=== PATIENT | female | born 1995 | race Caucasian/White ===

== ENCOUNTER 2019-05-01 17:27 | Inpatient (IN) | payer OTHER ==
[2019-05-01 19:43] VITALS: BMI 20.2
--- NOTE | 2019-05-01 21:34 | HP ---
COWS - Scale Resting Pulse: 0= [place] 80 or Below Sweatin= Chills/Flushing Restless Observation: 1= Difficult to Sit Still Pupil Size: 2= Moderately Dilated Bone or Joint Aches: 2= Severe Diffuse Aches Runny Nose/ Eye Tearin= Runny Nose/Eyes GI Upset > 30mins: 2= Nausea/Diarrhea Tremor Observation: 2= Slight Tremor Visible Yawning Observation: 0= None Anxiety or Irritability: 2=Irritable/Anxious Goose Flesh Skin: 0=Smooth Skin COWS Score: 14 CIWA Score Nausea/Vomitin Muscle Tremors: 3 Anxiety: 3 Agitation: 2 Paroxysmal Sweats: 1-Minimal Palms Moist Orientation: 0-Oriented Tacttile Disturbances: 0-None Auditory Disturbances: 0-None Visual Disturbances: 2-Mild Sensitivity Headache: 3-Moderate CIWA-Ar Total Score: 17 - Admission Criteria OASAS Guidelines: Admission for Medically Managed Detox: Requires at least one of the followin. CIWA greater than 12 2. Seizures within the past 24 hours 3. Delirium tremens within the past 24 hours 4. Hallucinations within the past 24 hours 5. Acute intervention needed for co occurring medical disorder 6. Acute intervention needed for co occurring psychiatric disorder 7. Severe withdrawal that cannot be handled at a lower level of care (continued vomiting, continued diarrhea, abnormal vital signs) requiring intravenous medication and/or fluids 8. Patient presents the following: CIWA greater than 12 Admission Criteria Met: Admission criteria met Admission ROS [facility] Chief Complaint: I want to stop Allergies/Adverse Reactions: Allergies Allergy/AdvReac Type Severity Reaction Status Date / Time No Known Allergies Allergy Verified 05/01/19 19:35 History of Present Illness: began using heroin age 17 recreationally became problematic immediately treatment inpt, detox mostly, 2-3 rehab 8 mos abstinent incarcerated 2 weeks relapsed after release xanax 14 yo recreationally stopped and recently started again no seizures - Ebola screening Have you traveled outside of the country in the last 21 days: No Have you had contact with anyone from an Ebola affected area: No - Review of Systems Constitutional: Loss of Appetite, Unintentional Wgt. Loss EENT: reports: No Symptoms Reported Respiratory: reports: No Symptoms reported Cardiac: reports: No Symptoms Reported GI: reports: Diarrhea, Poor Appetite, Abdominal cramping : reports: No Symptoms Reported Musculoskeletal: reports: Joint Pain Integumentary: reports: No Symptoms Reported Neuro: reports: No Symptoms reported Endocrine: reports: No Symptoms Reported Hematology: reports: No Symptoms Reported Psychiatric: reports: No Sypmtoms Reported, Mood/Affect Appropiate, Orientated x3 Other Systems: Reviewed and Negative Patient History - Patient Medical History Hx Anemia: No Hx Asthma: No Hx Chronic Obstructive Pulmonary Disease (COPD): No Hx Cancer: No Hx Cardiac Disorders: No Hx Congestive Heart Failure: No Hx Hypertension: No Hx Hypercholesterolemia: No Hx Pacemaker: No HX Cerebrovascular Accident: No Hx Seizures: No Hx Dementia: No Hx Diabetes: No Hx Gastrointestinal Disorders: No Hx Liver Disease: Yes Hx Genitourinary Disorders: No Hx Sexually Transmitted Disorders: No Hx Renal Disease (ESRD): No Hx Thyroid Disease: No Hx Human Immunodeficiency Virus (HIV): No Hx Hepatitis C: Yes Other Medical History: mrsa, urosepsis, anxiety - Patient Surgical History Past Surgical History: No - Reproductive History Patient is a Female of Child Bearing Age (11 -55 yrs old): Yes Last Menstrual Period: 04/16/19 LMP comment: Patient : No - Smoking Cessation Smoking history: Current every day smoker Have you smoked in the past 12 months: Yes Aproximately how many cigarettes per day: 10 Initiated information on smoking cessation: Yes 'Breaking Loose' booklet given: 05/01/19 - Substances abused Heroin Substance route: Injection Frequency: Daily Amount used: 20 bags Age of first use: 17 Date of last use: 05/01/19 Alprazolam (Xanax) Substance route: Oral Frequency: Daily Amount used: 5 to 10 mg Age of first use: 14 Date of last use: 05/01/19 Family Disease History - Family Disease History Family Disease History: Diabetes: Father Admission Physical Exam BHS - Vital Signs Vital Signs: Vital Signs - 24 hr 05/01/19 19:34 Temperature 96.2 F L Pulse Rate 75 Respiratory 16 Rate Blood Pressure 120/78 - Physical General Appearance: Yes: No Apparent Distress HEENTM: Yes: EOMI, SEBAS Respiratory: Yes: Within Normal Limits Neck: Yes: Within Normal Limits Cardiology: Yes: Within Normal Limits Abdominal: Yes: Within Normal Limits Genitourinary: Yes: Within Normal Limits Back: Yes: Within Normal Limits Musculoskeletal: Yes: Within Normal Limits Extremities: Yes: Normal Capillary Refill, Normal Inspection Neurological: Yes: Within Normal Limits, cancellation clerk II-XII NML intact, Normal Mood/ Affect Integumentary: Yes: Track Sol Lymphatic: Yes: Within Normal Limits - Diagnostic (1) Opiate dependence Current Visit: Yes Status: Acute (2) Benzodiazepine dependence Current Visit: Yes Status: Acute (3) Hepatitis C Current Visit: Yes Status: Acute Breathalyzer - Breathalyzer Breathalyzer: 0 Urine Drug Screen - Test Device Lot number: [id number] Expiration date: 12/25/20 - Control Is test valid?: Yes - Results Drug screen NEGATIVE: No Urine drug screen results: FEN-Fentanyl, MOP-Opiates, OXY-Oxycodone, BZO- Benzodiazepines Inpatient Rehab Admission - Rehab Decision to Admit Inpatient rehab admission?: No
[2019-05-01] MEDS ORDERED: IBUPROFEN 400 MG TABLET (FP) PO PRN (21:41)
[2019-05-01] MEDS ORDERED: BISMUTH SUBSALICYLATE 524 MG/30 ML UD PO PRN (21:41)
[2019-05-01] MEDS ORDERED: METHADONE HCL 10 MG TABLET (FOR DETOX USE ONLY) PO ONE (21:41)
[2019-05-01] MEDS ORDERED: hydrOXYzine PAMOATE 25 MG CAPSULE (FP) PO PRN (21:41)
[2019-05-01] MEDS ORDERED: cloNIDine HCL 0.1 MG TABLET PO PRN (21:41)
[2019-05-01] MEDS ORDERED: MAG HYDROX/AL HYDROX/SIMETH 30 ML UNIT-DOSE CUP PO PRN (21:41)
[2019-05-01] MEDS ORDERED: MENTHOL/PHENOL 1 EACH UD MM PRN (21:41)
[2019-05-01] MEDS ORDERED: MAGNESIUM CITRATE 300 ML BOTTLE PO PRN (21:41)
[2019-05-01] MEDS ORDERED: ACETAMINOPHEN 325 MG TABLET (FP) PO PRN ×2 (21:41)
[2019-05-01] MEDS ORDERED: MAGNESIUM HYDROX 2400MG/30ML ORAL SUSPENSION 30 ML CUP PO PRN (21:41)
[2019-05-01] MEDS: diazePAM 5 MG TABLET PO SCH (23:29)
[2019-05-01] MEDS: THIAMINE HCL 100 MG TABLET (FP) PO SCH (23:30)
[2019-05-02] MEDS: diazePAM 5 MG TABLET PO SCH ×3 (06:08→23:16)
[2019-05-02] MEDS: diazePAM 5 MG TABLET PO PRN (06:40)
[2019-05-02] MEDS ORDERED: METHADONE HCL 10 MG TABLET (FOR DETOX USE ONLY) ONE (09:57)
[2019-05-02] MEDS ORDERED: METHADONE HCL 5 MG TABLET (FOR DETOX USE ONLY) ONE (09:58)
[2019-05-02] MEDS ORDERED: METHADONE (DETOX) 20 MG, METHADONE (DETOX) 5 MG PO ONE (10:00)
[2019-05-02] MEDS: PRENATAL VITAMINS W/ FOLIC ACID TABLET (FP) PO SCH (10:51)
[2019-05-02 11:14] LABS: HEMATOCRIT 38.7 % (32.4-45.2); HEMOGLOBIN 12.8 GM/dL (10.7-15.3); MCH 28.3 pg (25.7-33.7); MCHC 33.1 g/dl (32.0-36.0); MEAN CELL VOLUME 85.2 fl (80-96); MEAN PLT VOLUME 10.9 fl (7.5-11.1); RBC 4.53 M/mm3 (3.60-5.2); RDW 14.6 % (11.6-15.6); WHITE BLOOD COUNT 5.6 K/mm3 (4.0-10.0)
[2019-05-02 11:17] LABS: ALBUMIN 3.2 g/dl (3.4-5.0); BILIRUBIN,TOTAL 0.5 mg/dL (0.2-1); BLOOD UREA NITROGEN 9.5 mg/dL (7-18); CALCIUM 8.8 mg/dL (8.5-10.1); CREATININE 0.7 mg/dL (0.55-1.3); TOT PROT 6.2 g/dl (6.4-8.2)
[2019-05-02] MEDS: METHOCARBAMOL 500 MG TABLET PO PRN ×2 (11:47→23:18)
[2019-05-02] MEDS ORDERED: PROCHLORPERAZINE MALEATE 5 MG TABLET PO PRN (12:02)
[2019-05-02 12:18] LABS: PLATELET COUNT 193 K/MM3 (134-434)
--- NOTE | 2019-05-02 15:28 | PN ---
S CIWA - CIWA Score Nausea/Vomitin Muscle Tremors: None Anxiety: 4-Mod. Anxious/Guarded Agitation: 3 Paroxysmal Sweats: No Perspiration Orientation: 0-Oriented Tacttile Disturbances: 2-Mild Itch/Numbness/Burn Auditory Disturbances: 0-None Visual Disturbances: 2-Mild Sensitivity Headache: 0-None Present CIWA-Ar Total Score: 14 [facility] COWS - Scale Resting Pulse: 0= [place] 80 or Below Sweatin= Chills/Flushing Restless Observation: 1= Difficult to Sit Still Pupil Size: 0= Normal to Room Light Bone or Joint Aches: 0= None Runny Nose/ Eye Tearin= None GI Upset > 30mins: 1= Stomach Cramp Tremor Observation of Outstretched Hands: 0= None Yawning Observation: 1= 1-2x During Session Anxiety or Irritability: 2=Irritable/Anxious Goose Flesh Skin: 3=Piloerection COWS Score: 9 BHS Progress Note (SOAP) Subjective: Restless, Anxious, Nausea, Stomach Cramping. Objective: PATIENT A & O X 3, OBSERVED AMBULATING ON UNIT UNASSISTED. IN NO ACUTE DISTRESS. 05/02/19 15:27 Vital Signs Temperature 97.1 F L 05/02/19 09:46 Pulse Rate 65 05/02/19 09:46 Respiratory Rate 18 05/02/19 09:46 Blood Pressure 112/61 05/02/19 09:46 O2 Sat by Pulse Oximetry (%) Laboratory Tests 05/02/19 05/02/19 05/02/19 08:00 08:00 08:00 WBC 5.6 RBC 4.53 Hgb 12.8 Hct 38.7 MCV 85.2 MCH 28.3 MCHC 33.1 RDW 14.6 Plt Count 193 MPV 10.9 Sodium 141 Potassium 4.0 Chloride 107 Carbon Dioxide 30 Anion Gap 5 L BUN 9.5 Creatinine 0.7 Est GFR (CKD-EPI)AfAm 141.54 Est GFR (CKD-EPI)NonAf 122.12 Random Glucose 87 Calcium 8.8 Total Bilirubin 0.5 AST 57 H ALT 101 H Alkaline Phosphatase 96 Total Protein 6.2 L Albumin 3.2 L RPR Titer Nonreactive LABS NOTED. Assessment: 05/02/19 15:28 WITHDRAWAL SYMPTOMS. Plan: CONTINUE DETOX. PRN COMPAZINE PO FOR NAUSEA.
[2019-05-02] MEDS: THIAMINE HCL 100 MG TABLET (FP) PO SCH (23:16)
[2019-05-03] MEDS: diazePAM 5 MG TABLET PO SCH ×2 (07:05→18:46)
[2019-05-03] MEDS: diazePAM 5 MG TABLET PO PRN (07:42)
[2019-05-03] MEDS ORDERED: METHADONE HCL 10 MG TABLET (FOR DETOX USE ONLY) PO ONE (10:00)
[2019-05-03] MEDS: PRENATAL VITAMINS W/ FOLIC ACID TABLET (FP) PO SCH (10:40)
[2019-05-03] MEDS: METHOCARBAMOL 500 MG TABLET PO PRN ×2 (10:41→18:47)
--- NOTE | 2019-05-03 11:57 | PN ---
S CIWA - CIWA Score Nausea/Vomitin-Mild Nausea/No Vomiting Muscle Tremors: 2 Anxiety: 2 Agitation: 2 Paroxysmal Sweats: 1-Minimal Palms Moist Orientation: 0-Oriented Tacttile Disturbances: 1-Very Mild Itch/Numbness Auditory Disturbances: 0-None Visual Disturbances: 0-None Headache: 1-Very Mild CIWA-Ar Total Score: 10 BHS COWS - Scale Resting Pulse: 0= [place] 80 or Below Sweatin= Chills/Flushing Restless Observation: 0= Sits Still Pupil Size: 0= Normal to Room Light Bone or Joint Aches: 1= Mild Discomfort Runny Nose/ Eye Tearin= None GI Upset > 30mins: 2= Nausea/Diarrhea Tremor Observation of Outstretched Hands: 1= Tremor [place], Not Seen Yawning Observation: 0= None Anxiety or Irritability: 1=Feels Anxious/Irritable Goose Flesh Skin: 0=Smooth Skin COWS Score: 6 BHS Progress Note (SOAP) Subjective: feeling calm today better than yesterday less anxious mild body aches discuss benefits of medication assisted program and the variation of methadone and subxone Objective: 05/03/19 11:56 Vital Signs Temperature 97.4 F L 05/03/19 09:36 Pulse Rate 56 L 05/03/19 09:36 Respiratory Rate 20 05/03/19 09:36 Blood Pressure 113/72 05/03/19 09:36 O2 Sat by Pulse Oximetry (%) Laboratory Last Values WBC 5.6 K/mm3 (4.0-10.0) 05/02/19 08:00 RBC 4.53 M/mm3 (3.60-5.2) 05/02/19 08:00 Hgb 12.8 GM/dL (10.7-15.3) 05/02/19 08:00 Hct 38.7 % (32.4-45.2) 05/02/19 08:00 MCV 85.2 fl (80-96) 05/02/19 08:00 MCH 28.3 pg (25.7-33.7) 05/02/19 08:00 MCHC 33.1 g/dl (32.0-36.0) 05/02/19 08:00 RDW 14.6 % (11.6-15.6) 05/02/19 08:00 Plt Count 193 K/MM3 (134-434) 05/02/19 08:00 MPV 10.9 fl (7.5-11.1) 05/02/19 08:00 Sodium 141 mmol/L (136-145) 05/02/19 08:00 Potassium 4.0 mmol/L (3.5-5.1) 05/02/19 08:00 Chloride 107 mmol/L (98-107) 05/02/19 08:00 Carbon Dioxide 30 mmol/L (21-32) 05/02/19 08:00 Anion Gap 5 MMOL/L (8-16) L 05/02/19 08:00 BUN 9.5 mg/dL (7-18) 05/02/19 08:00 Creatinine 0.7 mg/dL (0.55-1.3) 05/02/19 08:00 Est GFR (CKD-EPI)AfAm 141.54 05/02/19 08:00 Est GFR (CKD-EPI)NonAf 122.12 05/02/19 08:00 Random Glucose 87 mg/dL (74-106) 05/02/19 08:00 Calcium 8.8 mg/dL (8.5-10.1) 05/02/19 08:00 Total Bilirubin 0.5 mg/dL (0.2-1) 05/02/19 08:00 AST 57 U/L (15-37) H 05/02/19 08:00 ALT 101 U/L (13-61) H 05/02/19 08:00 Alkaline Phosphatase 96 U/L (45-117) 05/02/19 08:00 Total Protein 6.2 g/dl (6.4-8.2) L 05/02/19 08:00 Albumin 3.2 g/dl (3.4-5.0) L 05/02/19 08:00 POC Urine HCG, Qual Negative 05/01/19 21:06 RPR Titer Nonreactive (NONREACTIVE) 05/02/19 08:00 lab noted Assessment: 05/03/19 11:57 mild benzo and opiate withdrawal sx Plan: continue benzo and opioid detox
[2019-05-03] MEDS: MELATONIN 5 MG TABLETS PO PRN (22:20)
[2019-05-03] MEDS: THIAMINE HCL 100 MG TABLET (FP) PO SCH (22:20)
[2019-05-04] MEDS ORDERED: diazePAM 5 MG TABLET PO ONE (06:00)
[2019-05-04] MEDS ORDERED: METHADONE HCL 10 MG TABLET (FOR DETOX USE ONLY) ONE (08:25)
[2019-05-04] MEDS ORDERED: METHADONE HCL 5 MG TABLET (FOR DETOX USE ONLY) ONE (08:25)
[2019-05-04] MEDS: diazePAM 5 MG TABLET PO PRN ×4 (08:44→21:10)
[2019-05-04] MEDS ORDERED: METHADONE (DETOX) 10 MG, METHADONE (DETOX) 5 MG PO ONE (10:00)
[2019-05-04] MEDS: PRENATAL VITAMINS W/ FOLIC ACID TABLET (FP) PO SCH (10:11)
--- NOTE | 2019-05-04 12:44 | PN ---
S CIWA - CIWA Score Nausea/Vomitin-No Nausea/No Vomiting Muscle Tremors: 2 Anxiety: 2 Agitation: 1-Slight > Activity Paroxysmal Sweats: 1-Minimal Palms Moist Orientation: 0-Oriented Tacttile Disturbances: 0-None Auditory Disturbances: 0-None Visual Disturbances: 0-None Headache: 0-None Present CIWA-Ar Total Score: 6 S COWS - Scale Resting Pulse: 0= [place] 80 or Below Sweatin= No chills or Flushing Restless Observation: 0= Sits Still Pupil Size: 0= Normal to Room Light Bone or Joint Aches: 1= Mild Discomfort Runny Nose/ Eye Tearin= None GI Upset > 30mins: 0= None Tremor Observation of Outstretched Hands: 1= Tremor [place], Not Seen Yawning Observation: 0= None Anxiety or Irritability: 1=Feels Anxious/Irritable Goose Flesh Skin: 0=Smooth Skin COWS Score: 3 S Progress Note (SOAP) Subjective: feeling ok today less tremor mild anxiety encourage discussing medication assisted treatment program Objective: 05/04/19 12:45 Vital Signs Temperature 99.1 F 05/04/19 09:06 Pulse Rate 64 05/04/19 09:06 Respiratory Rate 16 05/04/19 09:06 Blood Pressure 108/66 05/04/19 09:06 O2 Sat by Pulse Oximetry (%) Laboratory Last Values WBC 5.6 K/mm3 (4.0-10.0) 05/02/19 08:00 RBC 4.53 M/mm3 (3.60-5.2) 05/02/19 08:00 Hgb 12.8 GM/dL (10.7-15.3) 05/02/19 08:00 Hct 38.7 % (32.4-45.2) 05/02/19 08:00 MCV 85.2 fl (80-96) 05/02/19 08:00 MCH 28.3 pg (25.7-33.7) 05/02/19 08:00 MCHC 33.1 g/dl (32.0-36.0) 05/02/19 08:00 RDW 14.6 % (11.6-15.6) 05/02/19 08:00 Plt Count 193 K/MM3 (134-434) 05/02/19 08:00 MPV 10.9 fl (7.5-11.1) 05/02/19 08:00 Sodium 141 mmol/L (136-145) 05/02/19 08:00 Potassium 4.0 mmol/L (3.5-5.1) 05/02/19 08:00 Chloride 107 mmol/L (98-107) 05/02/19 08:00 Carbon Dioxide 30 mmol/L (21-32) 05/02/19 08:00 Anion Gap 5 MMOL/L (8-16) L 05/02/19 08:00 BUN 9.5 mg/dL (7-18) 05/02/19 08:00 Creatinine 0.7 mg/dL (0.55-1.3) 05/02/19 08:00 Est GFR (CKD-EPI)AfAm 141.54 05/02/19 08:00 Est GFR (CKD-EPI)NonAf 122.12 05/02/19 08:00 Random Glucose 87 mg/dL (74-106) 05/02/19 08:00 Calcium 8.8 mg/dL (8.5-10.1) 05/02/19 08:00 Total Bilirubin 0.5 mg/dL (0.2-1) 05/02/19 08:00 AST 57 U/L (15-37) H 05/02/19 08:00 ALT 101 U/L (13-61) H 05/02/19 08:00 Alkaline Phosphatase 96 U/L (45-117) 05/02/19 08:00 Total Protein 6.2 g/dl (6.4-8.2) L 05/02/19 08:00 Albumin 3.2 g/dl (3.4-5.0) L 05/02/19 08:00 POC Urine HCG, Qual Negative 05/01/19 21:06 RPR Titer Nonreactive (NONREACTIVE) 05/02/19 08:00 lab noted Assessment: 05/04/19 12:46 benzo and opiate withdrawal sx Plan: continue benzo and opiate detox
[2019-05-04] MEDS: METHOCARBAMOL 500 MG TABLET PO PRN ×2 (12:53→22:25)
[2019-05-04] MEDS: MELATONIN 5 MG TABLETS PO PRN (22:23)
[2019-05-04] MEDS: THIAMINE HCL 100 MG TABLET (FP) PO SCH (22:23)
[2019-05-05] MEDS ORDERED: METHADONE HCL 10 MG TABLET (FOR DETOX USE ONLY) PO ONE (10:00)
[2019-05-05] MEDS: PRENATAL VITAMINS W/ FOLIC ACID TABLET (FP) PO SCH (10:46)
[2019-05-05] MEDS: METHOCARBAMOL 500 MG TABLET PO PRN ×2 (10:46→22:27)
--- NOTE | 2019-05-05 15:32 | PN ---
[facility] CIWA - CIWA Score Nausea/Vomitin-No Nausea/No Vomiting Muscle Tremors: 1-None Visible, but [place] Anxiety: 1-Mildly Anxious Agitation: 1-Slight > Activity Paroxysmal Sweats: No Perspiration Orientation: 0-Oriented Tacttile Disturbances: 0-None Auditory Disturbances: 0-None Visual Disturbances: 0-None Headache: 0-None Present CIWA-Ar Total Score: 3 S COWS - Scale Resting Pulse: 0= [place] 80 or Below Sweatin= No chills or Flushing Restless Observation: 0= Sits Still Pupil Size: 0= Normal to Room Light Bone or Joint Aches: 0= None Runny Nose/ Eye Tearin= None GI Upset > 30mins: 0= None Tremor Observation of Outstretched Hands: 1= Tremor [place], Not Seen Yawning Observation: 0= None Anxiety or Irritability: 0= None Goose Flesh Skin: 0=Smooth Skin COWS Score: 1 [facility] Progress Note (SOAP) Subjective: doing better today discuss medication assisted treatment program patient is strongly considering suboxone Objective: 05/05/19 15:35 Vital Signs Temperature 97.3 F L 05/05/19 13:05 Pulse Rate 62 05/05/19 13:05 Respiratory Rate 18 05/05/19 13:05 Blood Pressure 103/70 05/05/19 13:05 O2 Sat by Pulse Oximetry (%) Laboratory Last Values WBC 5.6 K/mm3 (4.0-10.0) 05/02/19 08:00 RBC 4.53 M/mm3 (3.60-5.2) 05/02/19 08:00 Hgb 12.8 GM/dL (10.7-15.3) 05/02/19 08:00 Hct 38.7 % (32.4-45.2) 05/02/19 08:00 MCV 85.2 fl (80-96) 05/02/19 08:00 MCH 28.3 pg (25.7-33.7) 05/02/19 08:00 MCHC 33.1 g/dl (32.0-36.0) 05/02/19 08:00 RDW 14.6 % (11.6-15.6) 05/02/19 08:00 Plt Count 193 K/MM3 (134-434) 05/02/19 08:00 MPV 10.9 fl (7.5-11.1) 05/02/19 08:00 Sodium 141 mmol/L (136-145) 05/02/19 08:00 Potassium 4.0 mmol/L (3.5-5.1) 05/02/19 08:00 Chloride 107 mmol/L (98-107) 05/02/19 08:00 Carbon Dioxide 30 mmol/L (21-32) 05/02/19 08:00 Anion Gap 5 MMOL/L (8-16) L 05/02/19 08:00 BUN 9.5 mg/dL (7-18) 05/02/19 08:00 Creatinine 0.7 mg/dL (0.55-1.3) 05/02/19 08:00 Est GFR (CKD-EPI)AfAm 141.54 05/02/19 08:00 Est GFR (CKD-EPI)NonAf 122.12 05/02/19 08:00 Random Glucose 87 mg/dL (74-106) 05/02/19 08:00 Calcium 8.8 mg/dL (8.5-10.1) 05/02/19 08:00 Total Bilirubin 0.5 mg/dL (0.2-1) 05/02/19 08:00 AST 57 U/L (15-37) H 05/02/19 08:00 ALT 101 U/L (13-61) H 05/02/19 08:00 Alkaline Phosphatase 96 U/L (45-117) 05/02/19 08:00 Total Protein 6.2 g/dl (6.4-8.2) L 05/02/19 08:00 Albumin 3.2 g/dl (3.4-5.0) L 05/02/19 08:00 POC Urine HCG, Qual Negative 05/01/19 21:06 RPR Titer Nonreactive (NONREACTIVE) 05/02/19 08:00 lab noted Assessment: 05/05/19 15:35 benzo and opiate withdrawal sx Plan: continue benzo and opiate detox
[2019-05-05] MEDS: MELATONIN 5 MG TABLETS PO PRN (22:26)
[2019-05-05] MEDS: THIAMINE HCL 100 MG TABLET (FP) PO SCH (22:26)
[2019-05-06] MEDS: METHOCARBAMOL 500 MG TABLET PO PRN (05:58)
[2019-05-06] MEDS ORDERED: METHADONE HCL 5 MG TABLET (FOR DETOX USE ONLY) PO ONE (06:00)
[2019-05-06 06:46] VITALS: BP 99/51; PULSE 53; TEMP 97.2
--- NOTE | 2019-05-06 14:45 | DS ---
[facility] Detox Discharge Summary Admission Date: 05/01/19 Discharge Date: 05/06/19 - History Present History: Opioid Dependence, Sedative Dependence Additional Comments: 23 years old female admitted on 05/01/19 for benzo and opiate withdrawal stabilization [facility] Physical Exam Results Vital Signs: Vital Signs Temperature 97.2 F L 05/06/19 06:46 Pulse Rate 53 L 05/06/19 06:46 Respiratory Rate 18 05/06/19 06:46 Blood Pressure 99/51 L 05/06/19 06:46 O2 Sat by Pulse Oximetry (%) Pertinent Admission Physical Exam Findings: benzo and opiate withdrawal sx Laboratory Last Values WBC 5.6 K/mm3 (4.0-10.0) 05/02/19 08:00 RBC 4.53 M/mm3 (3.60-5.2) 05/02/19 08:00 Hgb 12.8 GM/dL (10.7-15.3) 05/02/19 08:00 Hct 38.7 % (32.4-45.2) 05/02/19 08:00 MCV 85.2 fl (80-96) 05/02/19 08:00 MCH 28.3 pg (25.7-33.7) 05/02/19 08:00 MCHC 33.1 g/dl (32.0-36.0) 05/02/19 08:00 RDW 14.6 % (11.6-15.6) 05/02/19 08:00 Plt Count 193 K/MM3 (134-434) 05/02/19 08:00 MPV 10.9 fl (7.5-11.1) 05/02/19 08:00 Sodium 141 mmol/L (136-145) 05/02/19 08:00 Potassium 4.0 mmol/L (3.5-5.1) 05/02/19 08:00 Chloride 107 mmol/L (98-107) 05/02/19 08:00 Carbon Dioxide 30 mmol/L (21-32) 05/02/19 08:00 Anion Gap 5 MMOL/L (8-16) L 05/02/19 08:00 BUN 9.5 mg/dL (7-18) 05/02/19 08:00 Creatinine 0.7 mg/dL (0.55-1.3) 05/02/19 08:00 Est GFR (CKD-EPI)AfAm 141.54 05/02/19 08:00 Est GFR (CKD-EPI)NonAf 122.12 05/02/19 08:00 Random Glucose 87 mg/dL (74-106) 05/02/19 08:00 Calcium 8.8 mg/dL (8.5-10.1) 05/02/19 08:00 Total Bilirubin 0.5 mg/dL (0.2-1) 05/02/19 08:00 AST 57 U/L (15-37) H 05/02/19 08:00 ALT 101 U/L (13-61) H 05/02/19 08:00 Alkaline Phosphatase 96 U/L (45-117) 05/02/19 08:00 Total Protein 6.2 g/dl (6.4-8.2) L 05/02/19 08:00 Albumin 3.2 g/dl (3.4-5.0) L 05/02/19 08:00 POC Urine HCG, Qual Negative 05/01/19 21:06 RPR Titer Nonreactive (NONREACTIVE) 05/02/19 08:00 lab noted - Treatment Hospital Course: Detox Protocol Followed, Detoxed Safely, Responded well, Discharged Condition Good, Rehab Referral Accepted Patient has Accepted a Rehab Referral to: [facility] - Medication Discharge Medications: Ambulatory Orders NK [No Known Home Medication] 05/01/19 - Diagnosis (1) Alcohol dependence with uncomplicated withdrawal Status: Acute (2) Opioid dependence with withdrawal Status: Acute (3) Hepatitis C Status: Chronic Qualifiers: Viral hepatitis chronicity: unspecified Hepatic coma status: without hepatic coma Qualified Code(s): B19.20 - Unspecified viral hepatitis C without hepatic coma - AMA Did Patient Leave Against Medical Advice: No
== END 2019-05-06 09:01 | disposition home or self-care (01) | DRG 773 ==
LOC: YASAS 17:27 → Y3N 22:33
PROVIDERS: ADMIT Surgery; ATTEND Surgery
PROC: HZ2ZZZZ Detoxification Services for Substance Abuse Treatment (ICD-10-PCS; principal; 2019-05-01)
DX: F11.23 Opioid dependence with withdrawal (principal); F13.230 Sedative, hypnotic or anxiolytic dependence with withdrawal, uncomplicated; F17.210 Nicotine dependence, cigarettes, uncomplicated; B18.2 Chronic viral hepatitis C
CPT/HCPCS: 36415; 80053; 81025; 85027; 86593

== ENCOUNTER 2019-06-08 12:13 | Inpatient (IN) | payer OTHER ==
[2019-06-08 14:44] VITALS: BMI 20.7
--- NOTE | 2019-06-08 16:01 | PN ---
Teaching Attending Note Name of Resident: Yesica Chung ATTENDING PHYSICIAN STATEMENT I saw and evaluated the patient. I reviewed the resident's note and discussed the case with the resident. I agree with the resident's findings and plan as documented. SUBJECTIVE: 23 yo with no medical problems, on no meds, heroin use disorder and benzo use disorder here for detox. Was here last month- says she wants to stop using both substances- ready to go to rehab after detox OBJECTIVE: Vital Signs - 24 hr 06/08/19 14:36 Temperature 97.4 F L Pulse Rate 98 H Respiratory 16 Rate Blood Pressure 136/95 alert and oriented tremulous ASSESSMENT AND PLAN: heroin use disorder- start methadone detox benzo use disorder- start valium [place]
--- NOTE | 2019-06-08 16:01 | HP ---
COWS - Scale Resting Pulse: 1= [place] 81-100 Sweatin= Chills/Flushing Restless Observation: 1= Difficult to Sit Still Pupil Size: 0= Normal to Room Light Bone or Joint Aches: 1= Mild Discomfort Runny Nose/ Eye Tearin= Runny Nose/Eyes GI Upset > 30mins: 1= Stomach Cramp Tremor Observation: 4= Gross Tremor/Twitching Yawning Observation: 1= 1-2x During Session Anxiety or Irritability: 2=Irritable/Anxious Goose Flesh Skin: 0=Smooth Skin COWS Score: 14 CIWA Score Nausea/Vomitin Muscle Tremors: 4-Moderate,w/Arms Extend Anxiety: 3 Agitation: 2 Paroxysmal Sweats: 2 Orientation: 0-Oriented Tacttile Disturbances: 0-None Auditory Disturbances: 0-None Visual Disturbances: 0-None Headache: 2-Mild CIWA-Ar Total Score: 15 - Admission Criteria OASAS Guidelines: Admission for Medically Managed Detox: Requires at least one of the followin. CIWA greater than 12 2. Seizures within the past 24 hours 3. Delirium tremens within the past 24 hours 4. Hallucinations within the past 24 hours 5. Acute intervention needed for co occurring medical disorder 6. Acute intervention needed for co occurring psychiatric disorder 7. Severe withdrawal that cannot be handled at a lower level of care (continued vomiting, continued diarrhea, abnormal vital signs) requiring intravenous medication and/or fluids 8. Admission [facility] Chief Complaint: benzo and heroin detox and rehab Allergies/Adverse Reactions: Allergies Allergy/AdvReac Type Severity Reaction Status Date / Time No Known Allergies Allergy Verified 06/08/19 14:37 History of Present Illness: Patient is a 23 yo F with a PMHx of Hep C (untreated, 2017), presenting today for Xanax, heroine detox and rehab. Says she has been using heroin for 7 years and on/off with Xanax since 14 years old. Says she injects heroine throughout her body, mainly her Lower extremities. Patient has no hx of seizures. Patient was prescribed suboxone on 05/21 x 30 days. Last here for detox 05/01-05/06/19. Says she underwent detox many times in the past. - Ebola screening Have you traveled outside of the country in the last 21 days: No Have you had contact with anyone from an Ebola affected area: No Do you have a fever: No - Review of Systems Constitutional: Loss of Appetite, Changes in sleep EENT: reports: No Symptoms Reported Respiratory: reports: Cough, Shortness of Breath Cardiac: reports: Palpitations GI: reports: Poor Appetite : reports: No Symptoms Reported Musculoskeletal: reports: No Symptoms Reported Integumentary: reports: No Symptoms Reported Patient History - Patient Medical History Hx Anemia: No Hx Asthma: No Hx Chronic Obstructive Pulmonary Disease (COPD): No Hx Cancer: No Hx Cardiac Disorders: No Hx Congestive Heart Failure: No Hx Hypertension: No Hx Hypercholesterolemia: No Hx Pacemaker: No HX Cerebrovascular Accident: No Hx Seizures: No Hx Dementia: No Hx Diabetes: No Hx Gastrointestinal Disorders: No Hx Liver Disease: Yes Hx Genitourinary Disorders: No Hx Sexually Transmitted Disorders: No Hx Renal Disease (ESRD): No Hx Thyroid Disease: No Hx Human Immunodeficiency Virus (HIV): No Hx Hepatitis C: Yes Hx Depression: No Hx Suicide Attempt: No Hx Schizophrenia: No - Patient Surgical History Past Surgical History: No Hx Neurologic Surgery: No Hx Cataract Extraction: No Hx Cardiac Surgery: No Hx Lung Surgery: No Hx Breast Surgery: No Hx Breast Biopsy: No Hx Abdominal Surgery: No Hx Appendectomy: No Hx Cholecystectomy: No Hx Genitourinary Surgery: No Hx Section: No Hx Orthopedic Surgery: No Anesthesia Reaction: No - Reproductive History Last Menstrual Period: 04/16/19 - Smoking Cessation Smoking history: Current every day smoker Have you smoked in the past 12 months: Yes Aproximately how many cigarettes per day: 10 Hx Chewing Tobacco Use: No Initiated information on smoking cessation: Yes 'Breaking Loose' booklet given: 06/08/19 - Substances abused Heroin Substance route: Injection Frequency: Daily Amount used: 15 bags Age of first use: 17 Date of last use: 06/08/19 Alprazolam (Xanax) Substance route: Oral Frequency: Daily Amount used: 10 to 15 mg Age of first use: 14 Date of last use: 06/08/19 Family Disease History - Family Disease History Family Disease History: Diabetes: Father, Heart Disease: Mother Admission Physical Exam BHS - Vital Signs Vital Signs: Vital Signs - 24 hr 06/08/19 14:36 Temperature 97.4 F L Pulse Rate 98 H Respiratory 16 Rate Blood Pressure 136/95 - Physical General Appearance: Yes: Tremorous, Anxious HEENTM: Yes: Within Normal Limits, EOMI, SEBAS Respiratory: Yes: Lungs Clear, Normal Breath Sounds Neck: Yes: Supple Breast: Yes: Breast Exam Deferred Cardiology: Yes: S1, S2, Tachycardia Abdominal: Yes: Normal Bowel Sounds, Soft, Tenderness (LLQ tenderness) Genitourinary: Yes: Within Normal Limits - Diagnostic (1) Benzodiazepine dependence Current Visit: No Status: Acute (2) Opiate dependence Current Visit: No Status: Acute (3) Opioid dependence with withdrawal Current Visit: No Status: Acute (4) Hepatitis C Current Visit: No Status: Chronic Qualifiers: Viral hepatitis chronicity: unspecified Hepatic coma status: without hepatic coma Qualified Code(s): B19.20 - Unspecified viral hepatitis C without hepatic coma Cleared for Admission S - Detox or Rehab [facility] Level of Care: Medically Managed Breathalyzer - Breathalyzer Breathalyzer: 0 Urine Drug Screen - Test Device Lot number: [id number] Expiration date: 12/25/20 - Control Is test valid?: Yes - Results Drug screen NEGATIVE: No Urine drug screen results: FEN-Fentanyl, MOP-Opiates, OXY-Oxycodone, BZO- Benzodiazepines Inpatient Rehab Admission - Rehab Decision to Admit Inpatient rehab admission?: Yes - Initial Determination Are CD services needed?: Yes Free of communicable disease: Yes Not in need of hospitalization: Yes - Rehab Admission Criteria Previous failed treatment: Yes Poor recovery environment: Yes Comorbidities: Yes Lacks judgement: Yes Patient is meeting Inpatient Rehab admission criteria:: Yes
[2019-06-08] MEDS ORDERED: ACETAMINOPHEN 325 MG TABLET (FP) PO PRN ×2 (16:43)
[2019-06-08] MEDS ORDERED: BISMUTH SUBSALICYLATE 524 MG/30 ML UD PO PRN (16:43)
[2019-06-08] MEDS ORDERED: MENTHOL/PHENOL 1 EACH UD MM PRN (16:43)
[2019-06-08] MEDS ORDERED: MAGNESIUM CITRATE 300 ML BOTTLE PO PRN (16:43)
[2019-06-08] MEDS ORDERED: MAGNESIUM HYDROX 2400MG/30ML ORAL SUSPENSION 30 ML CUP PO PRN (16:43)
[2019-06-08] MEDS ORDERED: METHADONE HCL 10 MG TABLET (FOR DETOX USE ONLY) PO ONE (17:30)
[2019-06-08] MEDS ORDERED: diazePAM 5 MG TABLET PO ONE (17:45)
[2019-06-08] MEDS: MAG HYDROX/AL HYDROX/SIMETH 30 ML UNIT-DOSE CUP PO PRN (18:13)
[2019-06-08] MEDS: diazePAM 5 MG TABLET PO SCH (22:23)
[2019-06-08] MEDS: MELATONIN 5 MG TABLETS PO PRN (22:23)
[2019-06-08] MEDS: METHOCARBAMOL 500 MG TABLET PO PRN (22:23)
[2019-06-08] MEDS: THIAMINE HCL 100 MG TABLET (FP) PO SCH (22:23)
[2019-06-09] MEDS: diazePAM 5 MG TABLET PO SCH ×3 (05:53→22:26)
[2019-06-09] MEDS: METHOCARBAMOL 500 MG TABLET PO PRN ×2 (05:55→22:28)
[2019-06-09] MEDS: diazePAM 5 MG TABLET PO PRN ×4 (07:48→20:40)
[2019-06-09] MEDS ORDERED: METHADONE HCL 5 MG TABLET (FOR DETOX USE ONLY) ONE (09:40)
[2019-06-09] MEDS ORDERED: METHADONE HCL 10 MG TABLET (FOR DETOX USE ONLY) ONE (09:40)
[2019-06-09] MEDS ORDERED: METHADONE (DETOX) 20 MG, METHADONE (DETOX) 5 MG PO ONE (10:00)
[2019-06-09] MEDS: PRENATAL VITAMINS W/ FOLIC ACID TABLET (FP) PO SCH (10:32)
--- NOTE | 2019-06-09 12:10 | PN ---
[facility] CIWA - CIWA Score Nausea/Vomitin-No Nausea/No Vomiting Muscle Tremors: 3 Anxiety: 3 Agitation: 4-Moderately Restless Paroxysmal Sweats: 3 Orientation: 0-Oriented Tacttile Disturbances: 0-None Auditory Disturbances: 0-None Visual Disturbances: 0-None Headache: 0-None Present CIWA-Ar Total Score: 13 BHS COWS - Scale Resting Pulse: 1= [place] 81-100 Sweatin=Flushed/Facial Moisture Restless Observation: 1= Difficult to Sit Still Pupil Size: 0= Normal to Room Light Bone or Joint Aches: 2= Severe Diffuse Aches Runny Nose/ Eye Tearin= Nasal Congestion GI Upset > 30mins: 0= None Tremor Observation of Outstretched Hands: 1= Tremor [place], Not Seen Yawning Observation: 1= 1-2x During Session Anxiety or Irritability: 1=Feels Anxious/Irritable Goose Flesh Skin: 0=Smooth Skin COWS Score: 10 S Progress Note (SOAP) Subjective: agitation sweats irritable body aches interrupted sleep agitation Objective: 06/09/19 12:11 Vital Signs Temperature 97.9 F 06/09/19 09:39 Pulse Rate 98 H 06/09/19 09:39 Respiratory Rate 18 06/09/19 09:39 Blood Pressure 133/85 06/09/19 09:39 O2 Sat by Pulse Oximetry (%) Laboratory Tests 06/08/19 16:30 POC Urine HCG, Qual Negative rest of labs pending aaox3 ambulating no acute distress Assessment: 06/09/19 12:20 withdrawal sx Plan: continue detox increase fluids
[2019-06-09 12:54] LABS: ALBUMIN 3.6 g/dl (3.4-5.0); BILIRUBIN,TOTAL 0.5 mg/dL (0.2-1); CALCIUM 9.2 mg/dL (8.5-10.1); CREATININE 0.8 mg/dL (0.55-1.3); POTASSIUM 4.2 mmol/L (3.5-5.1); TOT PROT 6.9 g/dl (6.4-8.2)
[2019-06-09 13:47] LABS: HEMATOCRIT 38.6 % (32.4-45.2); HEMOGLOBIN 12.8 GM/dL (10.7-15.3); MCH 28.4 pg (25.7-33.7); MCHC 33.2 g/dl (32.0-36.0); MEAN CELL VOLUME 85.6 fl (80-96); MEAN PLT VOLUME 11.6 fl (7.5-11.1); PLATELET COUNT 193 K/MM3 (134-434); RBC 4.51 M/mm3 (3.60-5.2); RDW 13.8 % (11.6-15.6)
[2019-06-09] MEDS: hydrOXYzine PAMOATE 25 MG CAPSULE (FP) PO PRN (17:38)
[2019-06-09] MEDS: cloNIDine HCL 0.1 MG TABLET PO PRN (20:40)
[2019-06-09] MEDS: THIAMINE HCL 100 MG TABLET (FP) PO SCH (22:26)
[2019-06-10] MEDS: diazePAM 5 MG TABLET PO SCH ×2 (05:35→17:53)
[2019-06-10] MEDS: METHOCARBAMOL 500 MG TABLET PO PRN ×2 (05:36→22:54)
[2019-06-10] MEDS: diazePAM 5 MG TABLET PO PRN ×3 (07:30→19:35)
[2019-06-10] MEDS: MAG HYDROX/AL HYDROX/SIMETH 30 ML UNIT-DOSE CUP PO PRN (07:30)
[2019-06-10] MEDS ORDERED: METHADONE HCL 10 MG TABLET (FOR DETOX USE ONLY) PO ONE (10:00)
[2019-06-10] MEDS: PRENATAL VITAMINS W/ FOLIC ACID TABLET (FP) PO SCH (10:03)
[2019-06-10] MEDS: hydrOXYzine PAMOATE 25 MG CAPSULE (FP) PO PRN ×2 (10:29→22:25)
[2019-06-10] MEDS: cloNIDine HCL 0.1 MG TABLET PO PRN ×2 (10:29→22:25)
--- NOTE | 2019-06-10 10:35 | PN ---
[facility] CIWA - CIWA Score Nausea/Vomitin-No Nausea/No Vomiting Muscle Tremors: 2 Anxiety: 3 Agitation: 0-Normal Activity Paroxysmal Sweats: 3 Orientation: 0-Oriented Tacttile Disturbances: 0-None Auditory Disturbances: 0-None Visual Disturbances: 0-None Headache: 2-Mild CIWA-Ar Total Score: 10 BHS COWS - Scale Resting Pulse: 1= [place] 81-100 Sweatin= Chills/Flushing Restless Observation: 1= Difficult to Sit Still Pupil Size: 0= Normal to Room Light Bone or Joint Aches: 2= Severe Diffuse Aches Runny Nose/ Eye Tearin= Runny Nose/Eyes GI Upset > 30mins: 1= Stomach Cramp Tremor Observation of Outstretched Hands: 2= Slight Tremor Visible Yawning Observation: 1= 1-2x During Session Anxiety or Irritability: 2=Irritable/Anxious Goose Flesh Skin: 0=Smooth Skin COWS Score: 13 BHS Progress Note (SOAP) Subjective: c/o sweats, anxiety, irritability, stomach cramps, muscle aches, and headache. Objective: 06/10/19 10:35 Vital Signs 06/10/19 06/10/19 06/10/19 03:30 07:20 09:41 Temperature 96.6 F L 98.1 F Pulse Rate 86 84 Respiratory 18 16 18 Rate Blood Pressure 134/80 129/89 Lab Results WBC 6.0 K/mm3 (4.0-10.0) 06/09/19 07:30 RBC 4.51 M/mm3 (3.60-5.2) 06/09/19 07:30 Hgb 12.8 GM/dL (10.7-15.3) 06/09/19 07:30 Hct 38.6 % (32.4-45.2) 06/09/19 07:30 MCV 85.6 fl (80-96) 06/09/19 07:30 MCHC 33.2 g/dl (32.0-36.0) 06/09/19 07:30 RDW 13.8 % (11.6-15.6) 06/09/19 07:30 Plt Count 193 K/MM3 (134-434) 06/09/19 07:30 Sodium 141 mmol/L (136-145) 06/09/19 07:30 Potassium 4.2 mmol/L (3.5-5.1) 06/09/19 07:30 Chloride 107 mmol/L (98-107) 06/09/19 07:30 Carbon Dioxide 29 mmol/L (21-32) 06/09/19 07:30 Anion Gap 5 MMOL/L (8-16) L 06/09/19 07:30 BUN 8.0 mg/dL (7-18) 06/09/19 07:30 Creatinine 0.8 mg/dL (0.55-1.3) 06/09/19 07:30 Random Glucose 102 mg/dL (74-106) 06/09/19 07:30 Calcium 9.2 mg/dL (8.5-10.1) 06/09/19 07:30 Labs noted. Assessment: 06/10/19 10:35 AOX3, in no respiratory distress. Full ROM, ambulating in the unit. Withdrawal symptoms. Plan: continue detox.
[2019-06-10] MEDS: THIAMINE HCL 100 MG TABLET (FP) PO SCH (22:26)
[2019-06-11] MEDS: diazePAM 5 MG TABLET PO PRN ×4 (00:40→16:35)
[2019-06-11] MEDS ORDERED: diazePAM 5 MG TABLET PO ONE (06:00)
[2019-06-11] MEDS: IBUPROFEN 400 MG TABLET (FP) PO PRN ×2 (07:32→16:35)
[2019-06-11] MEDS: hydrOXYzine PAMOATE 25 MG CAPSULE (FP) PO PRN ×2 (07:33→22:21)
[2019-06-11] MEDS: METHOCARBAMOL 500 MG TABLET PO PRN ×2 (07:33→22:21)
[2019-06-11] MEDS ORDERED: METHADONE HCL 10 MG TABLET (FOR DETOX USE ONLY) ONE (08:59)
[2019-06-11] MEDS ORDERED: METHADONE HCL 5 MG TABLET (FOR DETOX USE ONLY) ONE (08:59)
[2019-06-11] MEDS ORDERED: METHADONE (DETOX) 10 MG, METHADONE (DETOX) 5 MG PO ONE (10:00)
[2019-06-11] MEDS: PRENATAL VITAMINS W/ FOLIC ACID TABLET (FP) PO SCH (10:19)
--- NOTE | 2019-06-11 11:13 | PN ---
[facility] CIWA - CIWA Score Nausea/Vomitin-No Nausea/No Vomiting Muscle Tremors: 2 Anxiety: 3 Agitation: 2 Paroxysmal Sweats: 3 Orientation: 0-Oriented Tacttile Disturbances: 0-None Auditory Disturbances: 0-None Visual Disturbances: 0-None Headache: 0-None Present CIWA-Ar Total Score: 10 BHS COWS - Scale Resting Pulse: 1= [place] 81-100 Sweatin= Chills/Flushing Restless Observation: 1= Difficult to Sit Still Pupil Size: 0= Normal to Room Light Bone or Joint Aches: 1= Mild Discomfort Runny Nose/ Eye Tearin= Runny Nose/Eyes GI Upset > 30mins: 1= Stomach Cramp Tremor Observation of Outstretched Hands: 2= Slight Tremor Visible Yawning Observation: 1= 1-2x During Session Anxiety or Irritability: 2=Irritable/Anxious Goose Flesh Skin: 0=Smooth Skin COWS Score: 12 S Progress Note (SOAP) Subjective: c/o sweats, muscle aches, anxiety, irritability, and stomach cramps. Objective: 06/11/19 11:14 Vital Signs 06/11/19 06/11/19 06/11/19 03:30 08:26 09:47 Temperature 96.1 F L 97.2 F L Pulse Rate 81 108 H Respiratory 18 18 19 Rate Blood Pressure 102/55 L 133/92 Lab Results WBC 6.0 K/mm3 (4.0-10.0) 06/09/19 07:30 RBC 4.51 M/mm3 (3.60-5.2) 06/09/19 07:30 Hgb 12.8 GM/dL (10.7-15.3) 06/09/19 07:30 Hct 38.6 % (32.4-45.2) 06/09/19 07:30 MCV 85.6 fl (80-96) 06/09/19 07:30 MCHC 33.2 g/dl (32.0-36.0) 06/09/19 07:30 RDW 13.8 % (11.6-15.6) 06/09/19 07:30 Plt Count 193 K/MM3 (134-434) 06/09/19 07:30 Sodium 141 mmol/L (136-145) 06/09/19 07:30 Potassium 4.2 mmol/L (3.5-5.1) 06/09/19 07:30 Chloride 107 mmol/L (98-107) 06/09/19 07:30 Carbon Dioxide 29 mmol/L (21-32) 06/09/19 07:30 Anion Gap 5 MMOL/L (8-16) L 06/09/19 07:30 BUN 8.0 mg/dL (7-18) 06/09/19 07:30 Creatinine 0.8 mg/dL (0.55-1.3) 06/09/19 07:30 Random Glucose 102 mg/dL (74-106) 06/09/19 07:30 Calcium 9.2 mg/dL (8.5-10.1) 06/09/19 07:30 Labs noted. Assessment: 06/11/19 11:15 AOX3, in no respiratory distress. Full ROM, ambulating in the unit. withdrawal symptoms. Plan: continue detox.
--- NOTE | 2019-06-11 11:30 | PN ---
BHS Progress Note Note: Pt states she was in [facility] for left ankle sprain due to fall and an chago wrap was applied to left LE. Chago wrap ordered to be applied once to left ankle.
[2019-06-11] MEDS: THIAMINE HCL 100 MG TABLET (FP) PO SCH (22:19)
[2019-06-11] MEDS: MELATONIN 5 MG TABLETS PO PRN (22:19)
[2019-06-12] MEDS: hydrOXYzine PAMOATE 25 MG CAPSULE (FP) PO PRN (07:48)
[2019-06-12] MEDS: METHOCARBAMOL 500 MG TABLET PO PRN (07:48)
[2019-06-12] MEDS: IBUPROFEN 400 MG TABLET (FP) PO PRN (07:48)
[2019-06-12 09:54] VITALS: BP 130/81; PULSE 100; TEMP 98.1
[2019-06-12] MEDS ORDERED: METHADONE HCL 10 MG TABLET (FOR DETOX USE ONLY) PO ONE (10:00)
[2019-06-12] MEDS: PRENATAL VITAMINS W/ FOLIC ACID TABLET (FP) PO SCH (10:15)
--- NOTE | 2019-06-12 12:02 | DS ---
[facility] Detox Discharge Summary Admission Date: 06/08/19 Discharge Date: 06/12/19 (Left AMA) - History Present History: Opioid Dependence, Sedative Dependence Additional Comments: Pt left AMA, pt did not complete her detox protocol. Pt states, "I have things to take care of ". An attempt to let her stay and complete her detox protocol failed. Pt is encouraged to follow-up with CD outpatient program and also to follow-up with her pmd but pt was adamant. Pt is alert and oriented x3 and in no respiratory distress. Pertinent Past History: Heroin and benzo use disorder. - Physical Exam Results Vital Signs: Vital Signs Temperature 98.1 F 06/12/19 09:51 Pulse Rate 100 H 06/12/19 09:51 Respiratory Rate 18 06/12/19 09:51 Blood Pressure 130/81 06/12/19 09:51 O2 Sat by Pulse Oximetry (%) Vital Signs 06/12/19 06/12/19 06:00 09:51 Temperature 97.5 F L 98.1 F Pulse Rate 59 L 100 H Respiratory 16 18 Rate Blood Pressure 103/55 L 130/81 Lab Results WBC 6.0 K/mm3 (4.0-10.0) 06/09/19 07:30 RBC 4.51 M/mm3 (3.60-5.2) 06/09/19 07:30 Hgb 12.8 GM/dL (10.7-15.3) 06/09/19 07:30 Hct 38.6 % (32.4-45.2) 06/09/19 07:30 MCV 85.6 fl (80-96) 06/09/19 07:30 MCHC 33.2 g/dl (32.0-36.0) 06/09/19 07:30 RDW 13.8 % (11.6-15.6) 06/09/19 07:30 Plt Count 193 K/MM3 (134-434) 06/09/19 07:30 Sodium 141 mmol/L (136-145) 06/09/19 07:30 Potassium 4.2 mmol/L (3.5-5.1) 06/09/19 07:30 Chloride 107 mmol/L (98-107) 06/09/19 07:30 Carbon Dioxide 29 mmol/L (21-32) 06/09/19 07:30 Anion Gap 5 MMOL/L (8-16) L 06/09/19 07:30 BUN 8.0 mg/dL (7-18) 06/09/19 07:30 Creatinine 0.8 mg/dL (0.55-1.3) 06/09/19 07:30 Random Glucose 102 mg/dL (74-106) 06/09/19 07:30 Calcium 9.2 mg/dL (8.5-10.1) 06/09/19 07:30 Labs noted. Pertinent Admission Physical Exam Findings: withdrawal symptoms. - Treatment Hospital Course: Detox Protocol Followed - Medication Discharge Medications: Ambulatory Orders NK [No Known Home Medication] 05/01/19 - Diagnosis (1) Alcohol dependence with uncomplicated withdrawal Status: Acute (2) Benzodiazepine dependence Status: Acute (3) Opiate dependence Status: Acute (4) Opioid dependence with withdrawal Status: Acute (5) Hepatitis C Status: Chronic Qualifiers: Viral hepatitis chronicity: unspecified Hepatic coma status: without hepatic coma Qualified Code(s): B19.20 - Unspecified viral hepatitis C without hepatic coma - AMA Did Patient Leave Against Medical Advice: Yes S COWS - Scale Resting Pulse: 0= [place] 80 or Below Sweatin= Beads of Sweat on Face Restless Observation: 1= Difficult to Sit Still Pupil Size: 0= Normal to Room Light Bone or Joint Aches: 1= Mild Discomfort Runny Nose/ Eye Tearin= None GI Upset > 30mins: 1= Stomach Cramp Tremor Observation of Outstretched Hands: 1= Tremor [place], Not Seen Yawning Observation: 1= 1-2x During Session Anxiety or Irritability: 2=Irritable/Anxious Goose Flesh Skin: 0=Smooth Skin COWS Score: 10 S CIWA - CIWA Score Nausea/Vomitin-No Nausea/No Vomiting Muscle Tremors: 1-None Visible, but [place] Anxiety: 3 Agitation: 2 Paroxysmal Sweats: 3 Orientation: 0-Oriented Tacttile Disturbances: 0-None Auditory Disturbances: 0-None Visual Disturbances: 0-None Headache: 1-Very Mild CIWA-Ar Total Score: 10
[2019-06-13] MEDS ORDERED: METHADONE HCL 5 MG TABLET (FOR DETOX USE ONLY) PO ONE (06:00)
== END 2019-06-12 11:11 | disposition left against medical advice (07) | DRG 770 ==
LOC: YASAS 12:13 → Y6N 17:11
PROVIDERS: ADMIT Surgery; ATTEND Surgery
PROC: HZ2ZZZZ Detoxification Services for Substance Abuse Treatment (ICD-10-PCS; principal; 2019-06-08)
DX: F11.23 Opioid dependence with withdrawal (principal); F10.230 Alcohol dependence with withdrawal, uncomplicated; F13.230 Sedative, hypnotic or anxiolytic dependence with withdrawal, uncomplicated; B19.20 Unspecified viral hepatitis C without hepatic coma; R00.0 Tachycardia, unspecified
CPT/HCPCS: 36415; 80053; 81025; 85027; 86480; 86593; J0735

== ENCOUNTER 2019-08-04 19:57 | Inpatient (IN) | payer OTHER ==
--- NOTE | 2019-08-04 22:10 | HP ---
CIWA Score Nausea/Vomitin-No Nausea/No Vomiting Muscle Tremors: 4-Moderate,w/Arms Extend Anxiety: 4-Mod. Anxious/Guarded Agitation: 4-Moderately Restless Paroxysmal Sweats: No Perspiration Orientation: 1-Uncertain about Date Tacttile Disturbances: 3-Moderate Itch/Numb/Burn (itching and picking of skin) Auditory Disturbances: 0-None Visual Disturbances: 3-Moderate Sensitivity Headache: 3-Moderate CIWA-Ar Total Score: 22 - Admission Criteria OASAS Guidelines: Admission for Medically Managed Detox: Requires at least one of the followin. CIWA greater than 12 2. Seizures within the past 24 hours 3. Delirium tremens within the past 24 hours 4. Hallucinations within the past 24 hours 5. Acute intervention needed for co occurring medical disorder 6. Acute intervention needed for co occurring psychiatric disorder 7. Severe withdrawal that cannot be handled at a lower level of care (continued vomiting, continued diarrhea, abnormal vital signs) requiring intravenous medication and/or fluids 8. Patient presents the following: CIWA greater than 12 Admission Criteria Met: Admission criteria met Admitting History and Physical - Past Medical History ...LMP: 04/16/19 - Smoking History Smoking history: Current every day smoker Have you smoked in the past 12 months: Yes Aproximately how many cigarettes per day: [address] [facility] Chief Complaint: C/O WITHDRAWAL SX'S Allergies/Adverse Reactions: Allergies Allergy/AdvReac Type Severity Reaction Status Date / Time No Known Allergies Allergy Verified 08/04/19 20:50 History of Present Illness: HERE FOR XANAX DETOX. CLIENT IS SELF REFERRED KNOWN TO THIS PROGRAM. LAST HERE . SHE IS ALSO OPIOID DEPENDENT ON MMTP WITH REPORTED DOSE OF 70 MG. LAST DOSED TODAY AT HER PROGRAM [facility] [place]. CLIENT IS TILL USING HEROIN APPOX 3 BAGS DAILY/ IV. SHE ALSO REPORTS DAILY XANAX USE. LAST USE EARLIER TODAY. LONGEST CLEAN TIME 8 MONTHS WHILE INCARCERATED. DENIES ANY SIGNIFICANT CLEAN TIME IN THE PAST YEAR. + HX/O DRUG OVERDOSE, BLACKOUTS. DENIES SEIZURES, SI/HI, AVH. HOMELESS, UNEMPLOYED, DENIES LEGALS Exam Limitations: No Limitations - Ebola screening Have you traveled outside of the country in the last 21 days: No (N) Have you had contact with anyone from an Ebola affected area: No Do you have a fever: No - Review of Systems Constitutional: Chills, Loss of Appetite, Malaise, Night Sweats, Changes in sleep, Unintentional Wgt. Loss EENT: reports: Blurred Vision, Nose Congestion (RUUNY NOSE) Respiratory: reports: No Symptoms reported Cardiac: reports: No Symptoms Reported GI: reports: Nausea, Poor Appetite, Poor Fluid Intake, Abdominal cramping : reports: No Symptoms Reported Musculoskeletal: reports: Joint Pain Integumentary: reports: Lesions (SCABS AND OPEN Abrasion from picking skin to face and arms) Neuro: reports: Headache, Numbness, Tremors Endocrine: reports: No Symptoms Reported Hematology: reports: No Symptoms Reported Psychiatric: reports: Orientated x3, Anxious Other Systems: Reviewed and Negative Patient History - Patient Medical History Hx Anemia: No Hx Asthma: No Hx Chronic Obstructive Pulmonary Disease (COPD): No Hx Cancer: No Hx Cardiac Disorders: No Hx Congestive Heart Failure: No Hx Hypertension: No Hx Hypercholesterolemia: No Hx Pacemaker: No HX Cerebrovascular Accident: No Hx Seizures: No Hx Dementia: No Hx Diabetes: No Hx Gastrointestinal Disorders: No Hx Liver Disease: Yes (hep c no txment) Hx Genitourinary Disorders: No Hx Sexually Transmitted Disorders: No Hx Renal Disease (ESRD): No Hx Thyroid Disease: No Hx Human Immunodeficiency Virus (HIV): No Hx Hepatitis C: Yes (no txment) Hx Depression: No Hx Suicide Attempt: No Hx Bipolar Disorder: No Hx Schizophrenia: No - Patient Surgical History Past Surgical History: No Hx Neurologic Surgery: No Hx Cataract Extraction: No Hx Cardiac Surgery: No Hx Lung Surgery: No Hx Breast Surgery: No Hx Breast Biopsy: No Hx Abdominal Surgery: No Hx Appendectomy: No Hx Cholecystectomy: No Hx Genitourinary Surgery: No Hx Section: No Hx Orthopedic Surgery: No Anesthesia Reaction: No - PPD History Previous Implant?: Yes Documented Results: Negative w/o proof Implanted On Prior R Admission?: No PPD to be Administered?: Yes - Reproductive History Patient is a Female of Child Bearing Age (11 -55 yrs old): Yes Last Menstrual Period: 07/28/19 LMP comment: reg Patient : No (neg uhcg) - Smoking Cessation Smoking history: Current every day smoker Have you smoked in the past 12 months: Yes Aproximately how many cigarettes per day: 10 Cigars Per Day: 0 Hx Chewing Tobacco Use: No Initiated information on smoking cessation: Yes 'Breaking Loose' booklet given: 08/04/19 - Substance & Tx. History Hx Alcohol Use: No Hx Substance Use: Yes Substance Use Type: Heroin, Prescribed (methadone), Tranquilizers (xanax) Hx Substance Use Treatment: Yes ([facility]) - Substances abused Heroin Substance route: Injection Frequency: 3-6 times per week Amount used: 3 bags Age of first use: 17 Date of last use: 08/08/19 Alprazolam (Xanax) Substance route: Oral Frequency: Daily Amount used: 10 to 20 mg Age of first use: 14 Date of last use: 08/04/19 Admission Physical Exam BHS - Vital Signs Vital Signs: Vital Signs - 24 hr 08/04/19 20:47 Temperature 97.1 F L Pulse Rate 84 Respiratory 16 Rate Blood Pressure 128/92 - Physical General Appearance: Yes: Moderate Distress, Tremorous, Irritable HEENTM: Yes: EOMI, Normocephalic, Normal Voice, SEBAS, Pharynx Normal, Rhinorrhea , Other (poor dental hygiene) Respiratory: Yes: Chest Non-Tender, Lungs Clear, Normal Breath Sounds Neck: Yes: No masses,lesions,Nodules, Supple, Trachea in good position Breast: Yes: Breast Exam Deferred Cardiology: Yes: Regular Rhythm, Regular Rate, S1, S2 Abdominal: Yes: Normal Bowel Sounds, Non Tender, Soft Genitourinary: Yes: Within Normal Limits Back: Yes: Normal Inspection Musculoskeletal: Yes: Gait Steady Extremities: Yes: Normal Range of Motion, Non-Tender, Tremors Neurological: Yes: Fully Oriented, Alert, Motor Strength 5/5, Depressed Affect Integumentary: Yes: Dry, Cold, Track Sol (r upper thigh and ble), Other ( abrasion like leasion to face arms and upper back from client picking skin no s/ sx of infection) Lymphatic: Yes: Within Normal Limits - Diagnostic (1) Sedative, hypnotic or anxiolytic dependence with withdrawal, uncomplicated Current Visit: Yes Status: Acute (2) Methadone maintenance therapy patient Current Visit: Yes Status: Chronic (3) Opioid abuse, continuous use Current Visit: Yes Status: Acute (4) Nicotine dependence Current Visit: Yes Status: Chronic Qualifiers: Nicotine product type: cigarettes Substance use status: uncomplicated Qualified Code(s): F17.210 - Nicotine dependence, cigarettes, uncomplicated (5) Excoriation (skin-picking) disorder Current Visit: Yes Status: Chronic (6) Hepatitis C Current Visit: Yes Status: Chronic Qualifiers: Viral hepatitis chronicity: unspecified Hepatic coma status: without hepatic coma Qualified Code(s): B19.20 - Unspecified viral hepatitis C without hepatic coma (7) Depressed affect Current Visit: Yes Status: Suspected Comment: declines psych consult Cleared for Admission [facility] - Detox or Rehab [facility] Level of Care: Medically Managed Detox Regimen/Protocol: Valium Claeared for Rehab Admission: No Breathalyzer - Breathalyzer Breathalyzer: 0 Urine Drug Screen - Test Device Lot number: [id number] Expiration date: 03/27/21 - Control Is test valid?: Yes - Results Drug screen NEGATIVE: No Urine drug screen results: NAN-Cocaine, MOP-Opiates, MTD-Methadone, BZO- Benzodiazepines Inpatient Rehab Admission - Rehab Decision to Admit Inpatient rehab admission?: No
[2019-08-04] MEDS ORDERED: NICOTINE POLACRILEX 2 MG GUM BUC PRN (22:16)
[2019-08-04] MEDS ORDERED: P-EPHED 60MG/TRIPROLIDI 2.5MG TABLET PO PRN (22:16)
[2019-08-04] MEDS ORDERED: ACETAMINOPHEN 325 MG TABLET (FP) PO PRN (22:16)
[2019-08-04] MEDS ORDERED: ONDANSETRON *ODT* 4 MG TABLET SL PRN (22:16)
[2019-08-04] MEDS ORDERED: DICYCLOMINE HCL 10 MG CAPSULE PO PRN (22:16)
[2019-08-04] MEDS ORDERED: MAGNESIUM HYDROX 2400MG/30ML ORAL SUSPENSION 30 ML CUP PO PRN (22:16)
[2019-08-04] MEDS ORDERED: MENTHOL/PHENOL 1 EACH UD MM PRN (22:16)
[2019-08-04] MEDS ORDERED: MAG HYDROX/AL HYDROX/SIMETH 30 ML UNIT-DOSE CUP PO PRN (22:16)
[2019-08-04] MEDS ORDERED: IBUPROFEN 400 MG TABLET (FP) PO PRN (22:16)
[2019-08-04] MEDS ORDERED: BISMUTH SUBSALICYLATE 524 MG/30 ML UD PO PRN (22:16)
[2019-08-04] MEDS ORDERED: MELATONIN 5 MG TABLETS PO PRN (22:16)
[2019-08-04] MEDS ORDERED: MAGNESIUM CITRATE 300 ML BOTTLE PO PRN (22:16)
[2019-08-04] MEDS ORDERED: hydrOXYzine PAMOATE 25 MG CAPSULE (FP) PO PRN (22:16)
[2019-08-04] MEDS ORDERED: guaiFENesin 200 MG/10 ML 10 ML UNIT-DOSE CUPS PO PRN (22:16)
[2019-08-05] MEDS: ACETAMINOPHEN 325 MG TABLET (FP) PO PRN (00:31)
[2019-08-05] MEDS: diazePAM 5 MG TABLET PO PRN ×4 (00:31→19:38)
[2019-08-05] MEDS: METHOCARBAMOL 500 MG TABLET PO PRN ×3 (00:31→22:04)
[2019-08-05] MEDS: diazePAM 5 MG TABLET PO SCH ×4 (00:42→22:04)
--- NOTE | 2019-08-05 09:03 | PN ---
S CIWA - CIWA Score Nausea/Vomitin-Mild Nausea/No Vomiting Muscle Tremors: 2 Anxiety: 4-Mod. Anxious/Guarded Agitation: 2 Paroxysmal Sweats: No Perspiration Orientation: 0-Oriented Tacttile Disturbances: 2-Mild Itch/Numbness/Burn Auditory Disturbances: 0-None Visual Disturbances: 0-None Headache: 2-Mild CIWA-Ar Total Score: 13 BHS Progress Note (SOAP) Subjective: c/o of interrupted sleep, nauseas, anxious , body aches Objective: 08/05/19 09:02 Vital Signs Temperature 97 F L 08/05/19 06:20 Pulse Rate 60 08/05/19 06:20 Respiratory Rate 16 08/05/19 06:20 Blood Pressure 97/63 08/05/19 06:20 O2 Sat by Pulse Oximetry (%) Laboratory Last Values WBC 3.6 K/mm3 (4.0-10.0) L 08/05/19 08:45 RBC 4.29 M/mm3 (3.60-5.2) 08/05/19 08:45 Hgb 12.0 GM/dL (10.7-15.3) 08/05/19 08:45 Hct 36.1 % (32.4-45.2) 08/05/19 08:45 MCV 84.2 fl (80-96) 08/05/19 08:45 MCH 28.0 pg (25.7-33.7) 08/05/19 08:45 MCHC 33.3 g/dl (32.0-36.0) 08/05/19 08:45 RDW 13.6 % (11.6-15.6) 08/05/19 08:45 Plt Count 178 K/MM3 (134-434) 08/05/19 08:45 MPV 11.2 fl (7.5-11.1) H 08/05/19 08:45 Sodium 141 mmol/L (136-145) 08/05/19 08:45 Potassium 4.1 mmol/L (3.5-5.1) 08/05/19 08:45 Chloride 105 mmol/L (98-107) 08/05/19 08:45 Carbon Dioxide 30 mmol/L (21-32) 08/05/19 08:45 Anion Gap 6 MMOL/L (8-16) L 08/05/19 08:45 BUN 8.4 mg/dL (7-18) 08/05/19 08:45 Creatinine 0.8 mg/dL (0.55-1.3) 08/05/19 08:45 Est GFR (CKD-EPI)AfAm 120.44 08/05/19 08:45 Est GFR (CKD-EPI)NonAf 103.92 08/05/19 08:45 Random Glucose 78 mg/dL (74-106) 08/05/19 08:45 Calcium 8.9 mg/dL (8.5-10.1) 08/05/19 08:45 Total Bilirubin 0.5 mg/dL (0.2-1) 08/05/19 08:45 AST 48 U/L (15-37) H 08/05/19 08:45 ALT 53 U/L (13-61) 08/05/19 08:45 Alkaline Phosphatase 82 U/L (45-117) 08/05/19 08:45 Total Protein 6.3 g/dl (6.4-8.2) L 08/05/19 08:45 Albumin 3.5 g/dl (3.4-5.0) 08/05/19 08:45 Urine Color Yellow 08/05/19 13:30 Urine Appearance Turbid 08/05/19 13:30 Urine pH 5.0 (5.0-8.0) 08/05/19 13:30 Ur Specific [place] 1.025 (1.010-1.035) 08/05/19 13:30 Urine Protein Negative (NEGATIVE) 08/05/19 13:30 Urine Glucose (UA) Negative (NEGATIVE) 08/05/19 13:30 Urine Ketones Negative (NEGATIVE) 08/05/19 13:30 Urine Blood Negative (NEGATIVE) 08/05/19 13:30 Urine Nitrite Negative (NEGATIVE) 08/05/19 13:30 Urine Bilirubin Negative (NEGATIVE) 08/05/19 13:30 Urine Urobilinogen 1.0 mg/dL (0.2-1.0) 08/05/19 13:30 Ur Leukocyte Esterase Negative (NEGATIVE) 08/05/19 13:30 POC Urine HCG, Qual Negative 08/04/19 21:47 Assessment: 08/05/19 22:05 Aox3 no distress anxious , pacing no adventitious breath sounds full ROM no gait abnormality withdrawal sx Plan: Patient linked to [facility] on methadone 70 mg, last medicated 08/04/19, dose verified by María Elena Mendez with Celia Herrera RN. Continue current dose during detox. continue detox Continue to monitor
[2019-08-05] MEDS ORDERED: METHADONE HCL 10 MG TABLET PO SCH (09:15)
[2019-08-05] MEDS ORDERED: METHADONE HCL 10 MG TABLET ONE (10:18)
[2019-08-05] MEDS ORDERED: METHADONE HCL 40 MG DISPERSABLE TABLET ONE (10:19)
[2019-08-05] MEDS: METHADONE 30 MG, METHADONE 40 MG PO SCH (10:24)
[2019-08-05] MEDS: NICOTINE 14 MG/24 HOURS TOPICAL PATCH TD SCH (10:25)
[2019-08-05] MEDS: PRENATAL VITAMINS W/ FOLIC ACID TABLET (FP) PO SCH (10:26)
--- NOTE | 2019-08-05 10:57 | EKG ---
Test Reason : Blood Pressure : / mmHG Vent. Rate : 060 BPM Atrial Rate : 060 BPM P-R Int : 126 ms QRS Dur : 098 ms QT Int : 462 ms P-R-T Axes : 057 041 041 degrees QTc Int : 462 ms NORMAL SINUS RHYTHM NORMAL ECG NO PREVIOUS ECGS AVAILABLE Confirmed by TY ROWLEY, KERA ([id number]) on 08/05/2019 10:56:47 AM Referred By: Jese Strange Confirmed By:KERA CRAWFORD MD
[2019-08-05 12:05] LABS: HEMATOCRIT 36.1 % (32.4-45.2); MCHC 33.3 g/dl (32.0-36.0); MEAN CELL VOLUME 84.2 fl (80-96); MEAN PLT VOLUME 11.2 fl (7.5-11.1); PLATELET COUNT 178 K/MM3 (134-434); RBC 4.29 M/mm3 (3.60-5.2); RDW 13.6 % (11.6-15.6); WHITE BLOOD COUNT 3.6 K/mm3 (4.0-10.0)
[2019-08-05 12:06] LABS: ALBUMIN 3.5 g/dl (3.4-5.0); BILIRUBIN,TOTAL 0.5 mg/dL (0.2-1); BLOOD UREA NITROGEN 8.4 mg/dL (7-18); CALCIUM 8.9 mg/dL (8.5-10.1); CREATININE 0.8 mg/dL (0.55-1.3); POTASSIUM 4.1 mmol/L (3.5-5.1); TOT PROT 6.3 g/dl (6.4-8.2)
[2019-08-05 17:30] LABS: URINE APPEARANCE TURBID; URINE BILIRUBIN NEGATIVE (NEGATIVE); URINE COLOR YELLOW; URINE GLUCOSE (UA) NEGATIVE (NEGATIVE); URINE KETONE NEGATIVE (NEGATIVE); URINE LEUK ESTERASE NEGATIVE (NEGATIVE); URINE NITRITE NEGATIVE (NEGATIVE); URINE PROTEIN NEGATIVE (NEGATIVE)
[2019-08-05] MEDS: THIAMINE HCL 100 MG TABLET (FP) PO SCH (22:04)
[2019-08-06] MEDS: diazePAM 5 MG TABLET PO PRN ×5 (00:26→22:23)
[2019-08-06] MEDS ORDERED: METHADONE HCL 40 MG DISPERSABLE TABLET ONE (05:03)
[2019-08-06] MEDS ORDERED: METHADONE HCL 10 MG TABLET ONE (05:03)
[2019-08-06] MEDS: diazePAM 5 MG TABLET PO SCH ×2 (05:41→17:45)
[2019-08-06] MEDS: METHADONE 30 MG, METHADONE 40 MG PO SCH (05:41)
[2019-08-06] MEDS: METHOCARBAMOL 500 MG TABLET PO PRN ×2 (05:42→22:24)
[2019-08-06] MEDS: ACETAMINOPHEN 325 MG TABLET (FP) PO PRN (05:42)
[2019-08-06] MEDS: PRENATAL VITAMINS W/ FOLIC ACID TABLET (FP) PO SCH (10:50)
[2019-08-06] MEDS: NICOTINE 14 MG/24 HOURS TOPICAL PATCH TD SCH (10:50)
[2019-08-06] MEDS ORDERED: NICOTINE POLACRILEX 4 MG GUM BUC PRN (14:26)
--- NOTE | 2019-08-06 18:02 | PN ---
S CIWA - CIWA Score Nausea/Vomitin-No Nausea/No Vomiting Muscle Tremors: None Anxiety: 3 Agitation: 3 Paroxysmal Sweats: No Perspiration Orientation: 0-Oriented Tacttile Disturbances: 0-None Auditory Disturbances: 0-None Visual Disturbances: 0-None Headache: 0-None Present CIWA-Ar Total Score: 6 BHS Progress Note (SOAP) Subjective: Anxious (Mild). Objective: PATIENT A & O X 3, OBSERVED AMBULATING ON DETOX UNIT UNASSISTED. IN NO ACUTE DISTRESS. 08/06/19 18:01 Vital Signs Temperature 96.8 F L 08/06/19 13:24 Pulse Rate 53 L 08/06/19 13:24 Respiratory Rate 16 08/06/19 13:24 Blood Pressure 110/75 08/06/19 13:24 O2 Sat by Pulse Oximetry (%) Laboratory Tests 08/04/19 08/05/19 08/05/19 21:47 08:45 08:45 WBC 3.6 L RBC 4.29 Hgb 12.0 Hct 36.1 MCV 84.2 MCH 28.0 MCHC 33.3 RDW 13.6 Plt Count 178 MPV 11.2 H Sodium 141 Potassium 4.1 Chloride 105 Carbon Dioxide 30 Anion Gap 6 L BUN 8.4 Creatinine 0.8 Est GFR (CKD-EPI)AfAm 120.44 Est GFR (CKD-EPI)NonAf 103.92 Random Glucose 78 Calcium 8.9 Total Bilirubin 0.5 AST 48 H ALT 53 Alkaline Phosphatase 82 Total Protein 6.3 L Albumin 3.5 Urine Color Urine Appearance Urine pH Ur Specific [place] Urine Protein Urine Glucose (UA) Urine Ketones Urine Blood Urine Nitrite Urine Bilirubin Urine Urobilinogen Ur Leukocyte Esterase POC Urine HCG, Qual Negative RPR Titer 08/05/19 08/05/19 08:45 13:30 WBC RBC Hgb Hct MCV MCH MCHC RDW Plt Count MPV Sodium Potassium Chloride Carbon Dioxide Anion Gap BUN Creatinine Est GFR (CKD-EPI)AfAm Est GFR (CKD-EPI)NonAf Random Glucose Calcium Total Bilirubin AST ALT Alkaline Phosphatase Total Protein Albumin Urine Color Yellow Urine Appearance Turbid Urine pH 5.0 Ur Specific [place] 1.025 Urine Protein Negative Urine Glucose (UA) Negative Urine Ketones Negative Urine Blood Negative Urine Nitrite Negative Urine Bilirubin Negative Urine Urobilinogen 1.0 Ur Leukocyte Esterase Negative POC Urine HCG, Qual RPR Titer Nonreactive LABS NOTED. Assessment: 08/06/19 18:02 WITHDRAWAL SYMPTOMS. Plan: CONTINUE DETOX. PATIENT SCHEDULED FOR D/C FROM DETOX UNIT TOMORROW.
[2019-08-06] MEDS: THIAMINE HCL 100 MG TABLET (FP) PO SCH (22:23)
[2019-08-07] MEDS ORDERED: METHADONE HCL 40 MG DISPERSABLE TABLET ONE (04:31)
[2019-08-07] MEDS ORDERED: METHADONE HCL 10 MG TABLET ONE (04:31)
[2019-08-07] MEDS: METHADONE 30 MG, METHADONE 40 MG PO SCH (05:33)
[2019-08-07] MEDS: METHOCARBAMOL 500 MG TABLET PO PRN (05:48)
[2019-08-07] MEDS: ACETAMINOPHEN 325 MG TABLET (FP) PO PRN (05:58)
[2019-08-07] MEDS ORDERED: diazePAM 5 MG TABLET PO ONE (06:00)
[2019-08-07 06:21] VITALS: BP 101/52; PULSE 56; TEMP 98
--- NOTE | 2019-08-07 10:57 | DS ---
[facility] Detox Discharge Summary Admission Date: 08/04/19 Discharge Date: 08/07/19 - History Present History: Alcohol Dependence, Sedative Dependence, MMTP - Physical Exam Results Vital Signs: Vital Signs Temperature 98.0 F 08/07/19 06:20 Pulse Rate 56 L 08/07/19 06:20 Respiratory Rate 18 08/07/19 06:20 Blood Pressure 101/52 L 08/07/19 06:20 O2 Sat by Pulse Oximetry (%) - Treatment Hospital Course: Detox Protocol Followed, Detoxed Safely, Responded well, Discharged Condition Good - Medication Discharge Medications: Ambulatory Orders NK [No Known Home Medication] 05/01/19 - Diagnosis (1) Alcohol dependence with uncomplicated withdrawal Status: Chronic (2) Benzodiazepine dependence Status: Chronic (3) Leukopenia Status: Acute Qualifiers: Leukopenia type: unspecified Qualified Code(s): D72.819 - Decreased white blood cell count, unspecified (4) Hepatitis C Status: Chronic Qualifiers: Viral hepatitis chronicity: unspecified Hepatic coma status: without hepatic coma Qualified Code(s): B19.20 - Unspecified viral hepatitis C without hepatic coma (5) Methadone maintenance therapy patient Status: Chronic (6) Nicotine dependence Status: Chronic Qualifiers: Nicotine product type: cigarettes Substance use status: uncomplicated Qualified Code(s): F17.210 - Nicotine dependence, cigarettes, uncomplicated - AMA Did Patient Leave Against Medical Advice: No
== END 2019-08-07 09:20 | disposition other institution (70) | DRG 773 ==
LOC: YASAS 19:57 → Y3N 22:59
PROVIDERS: ADMIT Allergy & Immunology; ATTEND Allergy & Immunology
PROC: HZ2ZZZZ Detoxification Services for Substance Abuse Treatment (ICD-10-PCS; principal; 2019-08-04)
DX: F10.230 Alcohol dependence with withdrawal, uncomplicated (principal); F13.20 Sedative, hypnotic or anxiolytic dependence, uncomplicated; F11.20 Opioid dependence, uncomplicated; F17.210 Nicotine dependence, cigarettes, uncomplicated; F42.4 Excoriation (skin-picking) disorder; D72.819 Decreased white blood cell count, unspecified; B19.20 Unspecified viral hepatitis C without hepatic coma; R45.89 Other symptoms and signs involving emotional state
CPT/HCPCS: 36415; 80053; 81003; 81025; 85027; 86593; 93005; 93010; Q0162

== ENCOUNTER 2019-08-07 13:40 | Inpatient (IN) | payer OTHER ==
[2019-08-07 16:29] VITALS: BMI 20.9
--- NOTE | 2019-08-07 17:17 | HP ---
CIWA Score - Admission Criteria [facility]AS Guidelines: Admission for Medically Managed Detox: Requires at least one of the followin. CIWA greater than 12 2. Seizures within the past 24 hours 3. Delirium tremens within the past 24 hours 4. Hallucinations within the past 24 hours 5. Acute intervention needed for co occurring medical disorder 6. Acute intervention needed for co occurring psychiatric disorder 7. Severe withdrawal that cannot be handled at a lower level of care (continued vomiting, continued diarrhea, abnormal vital signs) requiring intravenous medication and/or fluids 8. Admitting History and Physical - Past Medical History ...LMP: 07/28/19 - Smoking History Smoking history: Current every day smoker Have you smoked in the past 12 months: Yes Aproximately how many cigarettes per day: 10 - Alcohol/Substance Use Hx Alcohol Use: No Admission ROS BHS - HPI Allergies/Adverse Reactions: Allergies Allergy/AdvReac Type Severity Reaction Status Date / Time No Known Allergies Allergy Verified 08/07/19 16:19 History of Present Illness: pt here for rehab , completed detox today at this facility and returns for rehab . tobacco : 1/2 ppd- 1 ppd since age 12 LMP 2 weeks ago . pmhx : hep c no tx Exam Limitations: No Limitations - Ebola screening Have you traveled outside of the country in the last 21 days: No Have you had contact with anyone from an Ebola affected area: No Do you have a fever: No - Review of Systems Constitutional: Loss of Appetite EENT: reports: No Symptoms Reported, Other (glasses) Respiratory: reports: No Symptoms reported Cardiac: reports: No Symptoms Reported GI: reports: Nausea, Poor Appetite : reports: No Symptoms Reported Musculoskeletal: reports: No Symptoms Reported Integumentary: reports: No Symptoms Reported Neuro: reports: Headache Endocrine: reports: No Symptoms Reported Psychiatric: reports: Orientated x3, Depressed Patient History - Patient Medical History Hx Anemia: No Hx Asthma: No Hx Chronic Obstructive Pulmonary Disease (COPD): No Hx Cancer: No Hx Cardiac Disorders: No Hx Congestive Heart Failure: No Hx Hypertension: No Hx Hypercholesterolemia: No Hx Pacemaker: No HX Cerebrovascular Accident: No Hx Seizures: No Hx Dementia: No Hx Diabetes: No Hx Gastrointestinal Disorders: No Hx Liver Disease: Yes (hep c no txment) Hx Genitourinary Disorders: No Hx Sexually Transmitted Disorders: No Hx Renal Disease (ESRD): No Hx Thyroid Disease: No Hx Human Immunodeficiency Virus (HIV): No Hx Hepatitis C: Yes (no txment) Hx Depression: Yes Hx Suicide Attempt: No Hx Bipolar Disorder: No Hx Schizophrenia: No - Patient Surgical History Past Surgical History: No Hx Neurologic Surgery: No Hx Cataract Extraction: No Hx Cardiac Surgery: No Hx Lung Surgery: No Hx Breast Surgery: No Hx Breast Biopsy: No Hx Abdominal Surgery: No Hx Appendectomy: No Hx Cholecystectomy: No Hx Genitourinary Surgery: No Hx Section: No Hx Orthopedic Surgery: No Anesthesia Reaction: No - PPD History Date: 08/07/19 - Reproductive History Last Menstrual Period: 07/28/19 - Smoking Cessation Smoking history: Current every day smoker Have you smoked in the past 12 months: Yes Aproximately how many cigarettes per day: 10 Cigars Per Day: 0 Hx Chewing Tobacco Use: No Initiated information on smoking cessation: Yes 'Breaking Loose' booklet given: 08/07/19 - Substances abused Heroin Substance route: Injection Frequency: 3-6 times per week Amount used: 3 bags Age of first use: 17 Date of last use: 08/08/19 Alprazolam (Xanax) Substance route: Oral Frequency: Daily Amount used: 10 to 20 mg Age of first use: 14 Date of last use: 08/04/19 Admission Physical Exam BHS - Vital Signs Vital Signs: Vital Signs - 24 hr 08/07/19 16:16 Temperature 97.2 F L Pulse Rate 63 Respiratory 18 Rate Blood Pressure 132/83 - Physical General Appearance: Yes: Mild Distress, Irritable, Anxious HEENTM: Yes: EOMI, Hearing grossly Normal, Normocephalic, Normal Voice Respiratory: Yes: Chest Non-Tender, Lungs Clear, Normal Breath Sounds, No Respiratory Distress, No Accessory Muscle Use Neck: Yes: No masses,lesions,Nodules, Trachea in good position Cardiology: Yes: Regular Rhythm, Regular Rate, S1, S2 Abdominal: Yes: Non Tender, Soft Back: Yes: Normal Inspection Musculoskeletal: Yes: Gait Steady Extremities: Yes: Normal Range of Motion, Non-Tender, Tremors Neurological: Yes: Fully Oriented, Alert, Motor Strength 5/5, Depressed Affect Integumentary: Yes: Warm, Track Sol, Other (scarring hali LE from previous abscesses) - Diagnostic (1) Benzodiazepine dependence Current Visit: Yes Status: Chronic (2) Methadone maintenance therapy patient Current Visit: Yes Status: Chronic (3) Nicotine dependence Current Visit: Yes Status: Chronic Qualifiers: Nicotine product type: cigarettes Substance use status: uncomplicated Qualified Code(s): F17.210 - Nicotine dependence, cigarettes, uncomplicated Breathalyzer - Breathalyzer Breathalyzer: 0 Urine Drug Screen - Test Device Lot number: [id number] Expiration date: 03/27/21 - Control Is test valid?: Yes - Results Drug screen NEGATIVE: No Urine drug screen results: MTD-Methadone, BZO-Benzodiazepines Inpatient Rehab Admission - Rehab Decision to Admit Inpatient rehab admission?: Yes - Initial Determination Are CD services needed?: Yes Free of communicable disease: Yes Not in need of hospitalization: Yes - Rehab Admission Criteria Previous failed treatment: Yes Poor recovery environment: Yes Comorbidities: No Lacks judgement: Yes Patient is meeting Inpatient Rehab admission criteria:: Yes
[2019-08-07] MEDS ORDERED: P-EPHED 60MG/TRIPROLIDI 2.5MG TABLET PO PRN (17:22)
[2019-08-07] MEDS ORDERED: LOPERAMIDE HCL 2 MG CAPSULE PO PRN (17:22)
[2019-08-07] MEDS ORDERED: ACETAMINOPHEN 325 MG TABLET (FP) PO PRN (17:22)
[2019-08-07] MEDS ORDERED: guaiFENesin 200 MG/10 ML 10 ML UNIT-DOSE CUPS PO PRN (17:22)
[2019-08-07] MEDS ORDERED: IBUPROFEN 400 MG TABLET (FP) PO PRN (17:22)
[2019-08-07] MEDS ORDERED: MENTHOL/PHENOL 1 EACH UD MM PRN (17:22)
[2019-08-07] MEDS ORDERED: MAGNESIUM CITRATE 300 ML BOTTLE PO PRN (17:22)
[2019-08-07] MEDS ORDERED: MAG HYDROX/AL HYDROX/SIMETH 30 ML UNIT-DOSE CUP PO PRN (17:22)
[2019-08-07] MEDS ORDERED: MAGNESIUM HYDROX 2400MG/30ML ORAL SUSPENSION 30 ML CUP PO PRN (17:22)
[2019-08-07] MEDS: THIAMINE HCL 100 MG TABLET (FP) PO SCH (21:04)
[2019-08-07] MEDS: hydrOXYzine PAMOATE 50 MG CAPSULE (FP) PO PRN (21:05)
[2019-08-08] MEDS ORDERED: METHADONE HCL 10 MG TABLET PO SCH (06:00)
[2019-08-08] MEDS ORDERED: METHADONE HCL 40 MG DISPERSABLE TABLET PO SCH (09:30)
[2019-08-08] MEDS: hydrOXYzine PAMOATE 50 MG CAPSULE (FP) PO PRN ×3 (09:52→21:36)
[2019-08-08] MEDS: PRENATAL VITAMINS W/ FOLIC ACID TABLET (FP) PO SCH (09:52)
[2019-08-08] MEDS ORDERED: METHADONE 40 MG, METHADONE 30 MG PO ONE (10:15)
[2019-08-08] MEDS ORDERED: METHADONE HCL 10 MG TABLET ONE (10:19)
[2019-08-08] MEDS ORDERED: METHADONE HCL 40 MG DISPERSABLE TABLET ONE (10:19)
[2019-08-08 13:38] LABS: URINE APPEARANCE CLEAR; URINE BILIRUBIN NEGATIVE (NEGATIVE); URINE COLOR YELLOW; URINE GLUCOSE (UA) NEGATIVE (NEGATIVE); URINE KETONE NEGATIVE (NEGATIVE); URINE LEUK ESTERASE NEGATIVE (NEGATIVE); URINE NITRITE NEGATIVE (NEGATIVE); URINE PROTEIN NEGATIVE (NEGATIVE); URINE UROBILINOGEN 0.2 mg/dL (0.2-1.0)
[2019-08-08] MEDS: MELATONIN 5 MG TABLETS PO PRN (21:36)
[2019-08-08] MEDS: THIAMINE HCL 100 MG TABLET (FP) PO SCH (21:44)
[2019-08-09] MEDS ORDERED: METHADONE HCL 40 MG DISPERSABLE TABLET ONE (05:57)
[2019-08-09] MEDS ORDERED: METHADONE HCL 10 MG TABLET ONE (05:57)
[2019-08-09] MEDS: hydrOXYzine PAMOATE 50 MG CAPSULE (FP) PO PRN ×4 (06:42→21:58)
[2019-08-09] MEDS: METHADONE 40 MG, METHADONE 30 MG PO SCH (06:43)
[2019-08-09] MEDS: PRENATAL VITAMINS W/ FOLIC ACID TABLET (FP) PO SCH (09:57)
[2019-08-09] MEDS: MELATONIN 5 MG TABLETS PO PRN (21:58)
[2019-08-09] MEDS: THIAMINE HCL 100 MG TABLET (FP) PO SCH (21:58)
[2019-08-10] MEDS ORDERED: METHADONE HCL 10 MG TABLET ONE (05:52)
[2019-08-10] MEDS ORDERED: METHADONE HCL 40 MG DISPERSABLE TABLET ONE (05:53)
[2019-08-10] MEDS: hydrOXYzine PAMOATE 50 MG CAPSULE (FP) PO PRN ×4 (06:41→21:33)
[2019-08-10] MEDS: METHADONE 40 MG, METHADONE 30 MG PO SCH (06:41)
[2019-08-10] MEDS: NICOTINE POLACRILEX 2 MG GUM BC PRN ×3 (07:44→14:04)
[2019-08-10] MEDS: PRENATAL VITAMINS W/ FOLIC ACID TABLET (FP) PO SCH (09:38)
--- NOTE | 2019-08-10 15:48 | PN ---
S Progress Note Note: Patient c/o feeling anxious. Completed detox here at [facility] from xanax dependence. Patient states she was treated with Gabapentin in past while at [facility]. Patient also c/o itching/rash to left hand and dry skin. Vital Signs Temperature 98.1 F 08/10/19 07:03 Pulse Rate 64 08/10/19 07:03 Respiratory Rate 18 08/10/19 07:03 Blood Pressure 104/71 08/10/19 07:03 O2 Sat by Pulse Oximetry (%) Laboratory Tests 08/08/19 08:20 Urine Color Yellow Urine Appearance Clear Urine pH 7.0 D Ur Specific [place] 1.013 Urine Protein Negative Urine Glucose (UA) Negative Urine Ketones Negative Urine Blood Negative Urine Nitrite Negative Urine Bilirubin Negative Urine Urobilinogen 0.2 Ur Leukocyte Esterase Negative PE: alert and oriented x 3 skin warm, dry, + macular red rash on left hand by thumb area. +perrla, eoms intact bl ext full rom, amb ad tiki anxious, denies SI/HI A/P Rash/Dermatitis anxiety Psych consult aveeno soap hytone cream 0.5% bid x one week monitor
[2019-08-10] MEDS: MELATONIN 5 MG TABLETS PO PRN (21:33)
[2019-08-10] MEDS: THIAMINE HCL 100 MG TABLET (FP) PO SCH (21:33)
[2019-08-10] MEDS: HYDROCORTISONE 0.5% TOPICAL CREAM 30 GM TUBE TP SCH (21:34)
[2019-08-11] MEDS ORDERED: METHADONE HCL 40 MG DISPERSABLE TABLET ONE (04:02)
[2019-08-11] MEDS ORDERED: METHADONE HCL 10 MG TABLET ONE (04:02)
[2019-08-11] MEDS: METHADONE 40 MG, METHADONE 30 MG PO SCH (06:28)
[2019-08-11] MEDS: hydrOXYzine PAMOATE 50 MG CAPSULE (FP) PO PRN ×4 (06:29→21:39)
[2019-08-11] MEDS: COLLOIDAL OATMEAL 1 BAR EACH TP PRN (06:30)
[2019-08-11] MEDS ORDERED: PT OWN MED DRAWER 7, Y5N ONE ×2 (08:16→19:52)
[2019-08-11] MEDS: PRENATAL VITAMINS W/ FOLIC ACID TABLET (FP) PO SCH (09:37)
[2019-08-11] MEDS: HYDROCORTISONE 0.5% TOPICAL CREAM 30 GM TUBE TP SCH ×2 (09:37→21:40)
[2019-08-11] MEDS: NICOTINE POLACRILEX 2 MG GUM BC PRN ×2 (09:38→15:00)
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
[2019-08-11] MEDS: GABAPENTIN 300 MG CAPSULE (FP) PO SCH (17:05)
[2019-08-11] MEDS: MELATONIN 5 MG TABLETS PO PRN (21:39)
[2019-08-11] MEDS: THIAMINE HCL 100 MG TABLET (FP) PO SCH (21:39)
[2019-08-12] MEDS ORDERED: METHADONE HCL 10 MG TABLET ONE (04:02)
[2019-08-12] MEDS ORDERED: METHADONE HCL 40 MG DISPERSABLE TABLET ONE (04:03)
[2019-08-12] MEDS: METHADONE 40 MG, METHADONE 30 MG PO SCH (06:31)
[2019-08-12] MEDS: hydrOXYzine PAMOATE 50 MG CAPSULE (FP) PO PRN ×4 (06:32→21:25)
[2019-08-12] MEDS: GABAPENTIN 300 MG CAPSULE (FP) PO SCH ×2 (09:33→17:32)
[2019-08-12] MEDS: PRENATAL VITAMINS W/ FOLIC ACID TABLET (FP) PO SCH (09:34)
[2019-08-12] MEDS: HYDROCORTISONE 0.5% TOPICAL CREAM 30 GM TUBE TP SCH ×2 (09:34→21:26)
[2019-08-12] MEDS: THIAMINE HCL 100 MG TABLET (FP) PO SCH (21:25)
[2019-08-12] MEDS: MELATONIN 5 MG TABLETS PO PRN (21:25)
[2019-08-13] MEDS ORDERED: METHADONE HCL 10 MG TABLET ONE (04:11)
[2019-08-13] MEDS ORDERED: METHADONE HCL 40 MG DISPERSABLE TABLET ONE (04:11)
[2019-08-13] MEDS: hydrOXYzine PAMOATE 50 MG CAPSULE (FP) PO PRN ×4 (06:26→21:25)
[2019-08-13] MEDS: METHADONE 40 MG, METHADONE 30 MG PO SCH (06:26)
[2019-08-13] MEDS ORDERED: PT OWN MED DRAWER 7, Y5N ONE (08:23)
[2019-08-13] MEDS: PRENATAL VITAMINS W/ FOLIC ACID TABLET (FP) PO SCH (09:35)
[2019-08-13] MEDS: HYDROCORTISONE 0.5% TOPICAL CREAM 30 GM TUBE TP SCH ×2 (09:35→21:26)
[2019-08-13] MEDS: GABAPENTIN 300 MG CAPSULE (FP) PO SCH ×2 (09:35→17:05)
[2019-08-13] MEDS: MELATONIN 5 MG TABLETS PO PRN (21:25)
[2019-08-13] MEDS: THIAMINE HCL 100 MG TABLET (FP) PO SCH (21:25)
[2019-08-14] MEDS ORDERED: METHADONE HCL 40 MG DISPERSABLE TABLET ONE (05:52)
[2019-08-14] MEDS ORDERED: METHADONE HCL 10 MG TABLET ONE (05:52)
[2019-08-14] MEDS: METHADONE 40 MG, METHADONE 30 MG PO SCH (06:50)
[2019-08-14] MEDS: hydrOXYzine PAMOATE 50 MG CAPSULE (FP) PO PRN ×4 (06:50→21:28)
[2019-08-14] MEDS: GABAPENTIN 300 MG CAPSULE (FP) PO SCH ×2 (09:33→17:03)
[2019-08-14] MEDS: PRENATAL VITAMINS W/ FOLIC ACID TABLET (FP) PO SCH (09:34)
[2019-08-14] MEDS: HYDROCORTISONE 0.5% TOPICAL CREAM 30 GM TUBE TP SCH ×2 (09:34→21:29)
[2019-08-14] MEDS: THIAMINE HCL 100 MG TABLET (FP) PO SCH (21:28)
[2019-08-14] MEDS: MELATONIN 5 MG TABLETS PO PRN (21:28)
[2019-08-15] MEDS ORDERED: METHADONE HCL 10 MG TABLET ONE (03:51)
[2019-08-15] MEDS ORDERED: METHADONE HCL 40 MG DISPERSABLE TABLET ONE (03:51)
[2019-08-15] MEDS: hydrOXYzine PAMOATE 50 MG CAPSULE (FP) PO PRN ×4 (06:21→21:15)
[2019-08-15] MEDS: METHADONE 40 MG, METHADONE 30 MG PO SCH (06:21)
[2019-08-15] MEDS: PRENATAL VITAMINS W/ FOLIC ACID TABLET (FP) PO SCH (09:31)
[2019-08-15] MEDS: GABAPENTIN 300 MG CAPSULE (FP) PO SCH ×2 (09:31→17:00)
[2019-08-15] MEDS: HYDROCORTISONE 0.5% TOPICAL CREAM 30 GM TUBE TP SCH ×2 (09:32→21:16)
[2019-08-15] MEDS: NICOTINE POLACRILEX 2 MG GUM BC PRN (09:32)
[2019-08-15] MEDS: COLLOIDAL OATMEAL 1 BAR EACH TP PRN (09:42)
[2019-08-15] MEDS: MELATONIN 5 MG TABLETS PO PRN (21:16)
[2019-08-15] MEDS: THIAMINE HCL 100 MG TABLET (FP) PO SCH (21:16)
[2019-08-16] MEDS ORDERED: METHADONE HCL 10 MG TABLET ONE (04:00)
[2019-08-16] MEDS ORDERED: METHADONE HCL 40 MG DISPERSABLE TABLET ONE (04:01)
[2019-08-16] MEDS: METHADONE 40 MG, METHADONE 30 MG PO SCH (06:43)
[2019-08-16] MEDS: hydrOXYzine PAMOATE 50 MG CAPSULE (FP) PO PRN ×4 (06:43→21:20)
[2019-08-16] MEDS ORDERED: PT OWN MED DRAWER 7, Y5N ONE (08:36)
[2019-08-16] MEDS: GABAPENTIN 300 MG CAPSULE (FP) PO SCH ×2 (09:28→17:07)
[2019-08-16] MEDS: HYDROCORTISONE 0.5% TOPICAL CREAM 30 GM TUBE TP SCH ×2 (09:29→21:21)
[2019-08-16] MEDS: PRENATAL VITAMINS W/ FOLIC ACID TABLET (FP) PO SCH (09:29)
[2019-08-16] MEDS: MELATONIN 5 MG TABLETS PO PRN (21:20)
[2019-08-16] MEDS: THIAMINE HCL 100 MG TABLET (FP) PO SCH (21:20)
[2019-08-17] MEDS ORDERED: METHADONE HCL 40 MG DISPERSABLE TABLET ONE (03:34)
[2019-08-17] MEDS ORDERED: METHADONE HCL 10 MG TABLET ONE (03:34)
[2019-08-17] MEDS: METHADONE 40 MG, METHADONE 30 MG PO SCH (06:42)
[2019-08-17] MEDS: hydrOXYzine PAMOATE 50 MG CAPSULE (FP) PO PRN ×4 (06:43→21:26)
[2019-08-17] MEDS ORDERED: PT OWN MED DRAWER 7, Y5N ONE (08:35)
[2019-08-17] MEDS: GABAPENTIN 300 MG CAPSULE (FP) PO SCH ×2 (10:20→17:11)
[2019-08-17] MEDS: PRENATAL VITAMINS W/ FOLIC ACID TABLET (FP) PO SCH (10:22)
[2019-08-17] MEDS: HYDROCORTISONE 0.5% TOPICAL CREAM 30 GM TUBE TP SCH (10:22)
[2019-08-17] MEDS: THIAMINE HCL 100 MG TABLET (FP) PO SCH (21:26)
[2019-08-17] MEDS: MELATONIN 5 MG TABLETS PO PRN (21:27)
[2019-08-18] MEDS ORDERED: METHADONE HCL 40 MG DISPERSABLE TABLET ONE (08:54)
[2019-08-18] MEDS ORDERED: METHADONE HCL 10 MG TABLET ONE (08:54)
[2019-08-18] MEDS ORDERED: METHADONE 40 MG, METHADONE 30 MG PO SCH (10:00)
[2019-08-18] MEDS ORDERED: METHADONE HCL 10 MG TABLET PO ONE (10:03)
[2019-08-18] MEDS: PRENATAL VITAMINS W/ FOLIC ACID TABLET (FP) PO SCH (10:03)
[2019-08-18] MEDS: GABAPENTIN 300 MG CAPSULE (FP) PO SCH ×2 (10:03→17:18)
[2019-08-18] MEDS: hydrOXYzine PAMOATE 50 MG CAPSULE (FP) PO PRN ×3 (10:04→21:14)
[2019-08-18] MEDS ORDERED: METHADONE 40 MG, METHADONE 30 MG PO ONE (10:25)
[2019-08-18] MEDS: NICOTINE POLACRILEX 2 MG GUM BC PRN (14:59)
--- NOTE | 2019-08-18 15:12 | PN ---
S Progress Note Note: Patient is scheduled for discharge tomorrow. Script for 30 days supply of Gabapentin 300 mg/bid will be electronically transmitted to [facility] at [address] [place], [place] [id number]
--- NOTE | 2019-08-18 15:22 | DS ---
[facility] Rehab Discharge Summary - [facility] Rehab Discharge Summary Admission Date: 08/07/19 Discharge Date: 08/20/19 - History Present History: Cocaine dependence, MMTP, Opioid dependence Pertinent Past History: tobacco : 1/2 ppd- 1 ppd since age 12 LMP 2 weeks ago . pmhx : hep c no tx - Discharge Physical Exam Vital Signs: Vital Signs Temperature 97.7 F 08/18/19 07:11 Pulse Rate 77 08/18/19 07:11 Respiratory Rate 18 08/18/19 07:11 Blood Pressure 103/65 08/18/19 07:11 O2 Sat by Pulse Oximetry (%) Pertinent Admission Physical Exam Findings: - Physical General Appearance: No apparent distress HEENTM: Normocephalic, Respiratory: Lungs Clear, Neck: Trachea in good position Cardiology: S1, S2 Abdominal: Non Tender, Soft, +BS Musculoskeletal:Gait Steady Neurological: Motor Strength 5/5, - Treatment Discharge Condition: Discharge condition good (Medically stable for discharge) - Medication Discharge Medications: Ambulatory Orders Gabapentin [Neurontin -] 300 mg PO BID@1000,1700 #60 capsule 08/18/19 - Medication-Assisted Treatment (MAT) Medication-Assisted Treatment (MAT): Yes MAT Follow-up Referral: MMTP - Discharge Instructions Diet, activity, other medical instructions: Diet: as tolerated Activity: as tolerated Other medical instructions: please follow up with aftercare program - Diagnosis (1) Opioid abuse, continuous use Status: Acute (2) Benzodiazepine dependence Status: Chronic (3) Methadone maintenance therapy patient Status: Chronic - Follow-up Referral Minutes to complete discharge: 20 - AMA Did Patient Leave Against Medical Advice: No
[2019-08-18] MEDS: THIAMINE HCL 100 MG TABLET (FP) PO SCH (21:14)
[2019-08-18] MEDS: MELATONIN 5 MG TABLETS PO PRN (21:14)
[2019-08-19] MEDS ORDERED: METHADONE HCL 10 MG TABLET ONE (04:11)
[2019-08-19] MEDS ORDERED: METHADONE HCL 40 MG DISPERSABLE TABLET ONE (04:11)
[2019-08-19] MEDS ORDERED: METHADONE 40 MG, METHADONE 30 MG PO SCH ×2 (06:00)
[2019-08-19] MEDS: hydrOXYzine PAMOATE 50 MG CAPSULE (FP) PO PRN (06:54)
[2019-08-19 07:27] VITALS: BP 102/69; PULSE 72; TEMP 97.4
[2019-08-19] MEDS: GABAPENTIN 300 MG CAPSULE (FP) PO SCH (09:46)
[2019-08-19] MEDS: PRENATAL VITAMINS W/ FOLIC ACID TABLET (FP) PO SCH (09:46)
== END 2019-08-19 10:22 | disposition home or self-care (01) | DRG 772 ==
LOC: YASAS 13:40 → Y3E 18:02
PROVIDERS: ADMIT Neuromusculoskeletal Medicine & OMM; ATTEND Neuromusculoskeletal Medicine & OMM
PROC: HZ42ZZZ Group Counseling for Substance Abuse Treatment, Cognitive-Behavioral (ICD-10-PCS; principal; 2019-08-07)
DX: F13.20 Sedative, hypnotic or anxiolytic dependence, uncomplicated (principal); F11.20 Opioid dependence, uncomplicated; F17.210 Nicotine dependence, cigarettes, uncomplicated; F41.9 Anxiety disorder, unspecified; F19.280 Other psychoactive substance dependence with psychoactive substance-induced anxiety disorder; B18.2 Chronic viral hepatitis C
CPT/HCPCS: 36415; 81003; 81025; 84702